=== PATIENT | male | born 1970 ===

== ENCOUNTER 2020-07-19 14:19 | Outpatient (REF) | payer OTHER, SELFPAY | END 2020-07-19 14:20 | disposition home or self-care (01) | LOC: HO.LAB 14:19 | PROVIDERS: Visit Provider Internal Medicine | DX: Z20.828 Contact with and (suspected) exposure to other viral communicable diseases (principal) | CPT/HCPCS: 87635 ==

== ENCOUNTER 2020-10-19 09:56 | Emergency (ER) | payer OTHER, SELFPAY ==
[2020-10-19 10:49] VITALS: BP 132/80; PULSE 67; RESP 16; TEMP 36.8; O2SAT 99; BMI 25.8
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
== END 2020-10-19 11:26 | disposition home or self-care (01) ==
PROVIDERS: Emergency Provider Emergency Medicine
DX: S13.4XXA Sprain of ligaments of cervical spine, initial encounter (principal); S39.012A Strain of muscle, fascia and tendon of lower back, initial encounter; M54.2 Cervicalgia; V43.62XA Car passenger injured in collision with other type car in traffic accident, initial encounter; Y93.9 Activity, unspecified; Y92.410 Unspecified street and highway as the place of occurrence of the external cause; Y99.9 Unspecified external cause status; Z79.899 Other long term (current) drug therapy
CPT/HCPCS: 99283; 99284

== ENCOUNTER 2021-05-06 13:58 | Outpatient (REF) | payer OTHER, SELFPAY ==
--- NOTE | ~2021-05-06 | XR_ITS ---
EXAMINATION: XR CERVICAL SPINE CLINICAL INFORMATION: Cervicalgia. COMPARISON: None. TECHNIQUE: 3 views of the cervical spine were obtained. FINDINGS: Straightening of the normal cervical lordosis, which may be positional or related to muscular spasm. Minimal grade 1 retrolisthesis of C5 on C6. No loss of vertebral body height. Loss of intervertebral disc height with prominent endplate osteophytes at C5-C6. No lytic or blastic osseous lesion. Normal atlantoaxial alignment. Unremarkable prevertebral soft tissues. XR/XR cervical spine 3V IMPRESSION: 1. Moderate degenerative disc disease at C5-C6 with minimal grade 1 retrolisthesis. 2. Straightening of the normal cervical lordosis, which may be positional or related to muscular spasm.
== END 2021-05-06 13:59 | disposition home or self-care (01) ==
LOC: HO.HMGCX 13:58
PROVIDERS: Visit Provider Hospitalist
DX: M54.2 Cervicalgia (principal)
CPT/HCPCS: 72040

== ENCOUNTER 2021-09-20 10:39 | Outpatient (REF) | payer OTHER, SELFPAY ==
[2021-09-20 11:36] LABS: Binax Now Covid-19 Ag Negative (Negative)
[2021-09-20 11:37] LABS: Binax Internal Control QC Valid; Binax Lot number: 9864
== END 2021-09-20 10:40 | disposition home or self-care (01) ==
LOC: HO.LAB 10:39
PROVIDERS: Visit Provider Internal Medicine
DX: Z20.822 Contact with and (suspected) exposure to COVID-19 (principal)
CPT/HCPCS: 36415; C9803

== ENCOUNTER 2021-10-17 09:47 | Outpatient (REF) | payer OTHER, SELFPAY ==
--- NOTE | ~2021-10-17 | XR_ITS ---
EXAMINATION: CERVICAL AND THORACIC SPINE X-RAY CLINICAL INFORMATION: Radiculopathy COMPARISON: Previous cervical spine x-ray April 2021 and thoracic spine x-ray January 2017 and MRI October 2017 TECHNIQUE: 3 views of the cervical spine and 3 views of the thoracic spine including swimmer's view FINDINGS: Cervical spine: Bone alignment is normal. No fracture or dislocation is seen. There is degenerative spondylosis at C3 C4-C5 and C5-C6. There is disc space narrowing at C5-C6. Prevertebral soft tissues are normal. Thoracic spine: Bone alignment is normal. No fracture or dislocation is seen. Disc spaces are normal. There is mild degenerative spondylosis of the lower thoracic spine. Paraspinal soft tissues are unremarkable. XR/XR cervical spine 3V IMPRESSION: Cervical spine: Degenerative changes at C4-C5 and C5-C6 similar to April 2021 exam. Thoracic spine: Mild degenerative spondylosis of the lower thoracic spine.
--- NOTE | ~2021-10-17 | XR_ITS ---
EXAMINATION: CERVICAL AND THORACIC SPINE X-RAY CLINICAL INFORMATION: Radiculopathy COMPARISON: Previous cervical spine x-ray April 2021 and thoracic spine x-ray January 2017 and MRI October 2017 TECHNIQUE: 3 views of the cervical spine and 3 views of the thoracic spine including swimmer's view FINDINGS: Cervical spine: Bone alignment is normal. No fracture or dislocation is seen. There is degenerative spondylosis at C3 C4-C5 and C5-C6. There is disc space narrowing at C5-C6. Prevertebral soft tissues are normal. Thoracic spine: Bone alignment is normal. No fracture or dislocation is seen. Disc spaces are normal. There is mild degenerative spondylosis of the lower thoracic spine. Paraspinal soft tissues are unremarkable. XR/XR thoracic spine 3V IMPRESSION: Cervical spine: Degenerative changes at C4-C5 and C5-C6 similar to April 2021 exam. Thoracic spine: Mild degenerative spondylosis of the lower thoracic spine.
== END 2021-10-17 09:48 | disposition home or self-care (01) ==
LOC: HO.HMGCX 09:47
PROVIDERS: Visit Provider Nurse Practitioner Family
DX: M54.14 Radiculopathy, thoracic region (principal)
CPT/HCPCS: 72040; 72072

== ENCOUNTER → 2021-11-01 08:42 | Outpatient (BNVA) | payer OTHER, SELFPAY | PROVIDERS: Visit Provider Nurse Practitioner | DX: Z12.11 Encounter for screening for malignant neoplasm of colon (principal); K21.9 Gastro-esophageal reflux disease without esophagitis; K75.81 Nonalcoholic steatohepatitis (NASH) | CPT/HCPCS: 99212 ==

== ENCOUNTER 2021-11-04 08:29 | Outpatient (REF) | payer OTHER, SELFPAY ==
[2021-11-04 09:38] LABS: Alanine Aminotransferase 19 U/L (0-40); Albumin Level 4.4 g/dL (3.5-5.0); Alkaline Phosphatase 39 U/L (39-117); Anion Gap 11 (12-20); Aspartate Amino Transferase 20 U/L (5-37); Bilirubin Total 0.7 mg/dL (0.0-1.0); Blood Urea Nitrogen 14 mg/dL (9-16); Calcium 9.7 mg/dL (8.4-10.2); Carbon Dioxide 29 mmol/L (22-29); Chloride 107 mmol/L (96-108); Estimated Glomerular Filt Rate > 60; Glucose Random 103 mg/dL (60-115); Potassium 4.6 mmol/L (3.3-5.1); Sodium 142 mmol/L (135-145); Total Protein 7.2 g/dL (6.5-8.0)
[2021-11-06 12:12] LABS: Alpha Fetoprotein 2.4 ng/mL (<6.1)
== END 2021-11-04 08:30 | disposition home or self-care (01) ==
LOC: HO.LAB 08:29
PROVIDERS: Visit Provider Nurse Practitioner
DX: Z12.11 Encounter for screening for malignant neoplasm of colon (principal)
CPT/HCPCS: 36415; 80053; 82105

== ENCOUNTER → 2021-12-09 10:31 | Outpatient (BNVA) | payer OTHER, SELFPAY | PROVIDERS: Visit Provider Internal Medicine | DX: M54.51 Vertebrogenic low back pain (principal); M51.34 Other intervertebral disc degeneration, thoracic region; S16.1XXA Strain of muscle, fascia and tendon at neck level, initial encounter; X58.XXXA Exposure to other specified factors, initial encounter; Y93.9 Activity, unspecified; Y92.9 Unspecified place or not applicable; Y99.8 Other external cause status; Z79.899 Other long term (current) drug therapy | CPT/HCPCS: 99202 ==

== ENCOUNTER 2021-12-16 08:48 | Outpatient (REF) | payer OTHER, SELFPAY ==
[2021-12-16 11:38] LABS: Appearance Urine CLEAR; Color Urine YELLOW; Glucose Urine UA NEG (NEG); Leukocyte Esterase Urine NEG (NEG); Nitrite Urine NEG (NEG); PH 5.5 (5.0-8.0); Specific Gravity - Urine >= 1.030 (1.005-1.025); Urine Blood NEG (NEG); Urine Ketones NEG (NEG); Urine Protein NEG (NEG-TRACE)
[2021-12-16 11:58] LABS: Alanine Aminotransferase 28 U/L (0-40); Albumin Level 4.3 g/dL (3.5-5.0); Alkaline Phosphatase 39 U/L (39-117); Anion Gap 11 (12-20); Aspartate Amino Transferase 20 U/L (5-37); Bilirubin Total 0.6 mg/dL (0.0-1.0); Blood Urea Nitrogen 14 mg/dL (9-16); Calcium 9.1 mg/dL (8.4-10.2); Carbon Dioxide 26 mmol/L (22-29); Chloride 108 mmol/L (96-108); Cholesterol 161 mg/dL; Estimated Glomerular Filt Rate > 60; Glucose Fasting 102 mg/dL (60-99); HDL Cholesterol 32 mg/dL; LDL Cholesterol Calculated 105 mg/dl; Potassium 4.4 mmol/L (3.3-5.1); Sodium 141 mmol/L (135-145); Total Protein 7.1 g/dL (6.5-8.0); Triglycerides 124 mg/dL
[2021-12-16 12:18] LABS: Prostate Specific Antigen Scr 0.45 ng/mL (<0.05-4.0); TSH reflex Free T4 1.69 uIU/mL (0.32-4.0)
== END 2021-12-16 08:49 | disposition home or self-care (01) ==
LOC: HO.HMGCLDS 08:48
PROVIDERS: Visit Provider Nurse Practitioner Family
DX: Z00.00 Encounter for general adult medical examination without abnormal findings (principal); Z12.5 Encounter for screening for malignant neoplasm of prostate
CPT/HCPCS: 36415; 80053; 80061; 81003; 84153; 84443

== ENCOUNTER 2022-02-04 10:13 | Outpatient (REF) | payer OTHER, SELFPAY ==
--- NOTE | ~2022-02-04 | US_ITS ---
EXAMINATION: US ABDOMEN LIMITED CLINICAL INFORMATION: Right upper quadrant abdominal pain. COMPARISON: Ultrasound abdomen complete 09/13/2019 and 12/27/2018. X-ray abdomen 10/27/2018. CT abdomen and pelvis without contrast 02/24/2017. TECHNIQUE: Real-time imaging of the right upper quadrant abdominal viscera. FINDINGS: PANCREAS: Normal. LIVER: The liver is normal in size. The liver contour is normal. There is mildly increased echogenicity diffusely consistent with some degree of fatty infiltration. No focal hepatic lesion. There is no intrahepatic biliary duct dilatation seen. GALLBLADDER: Normal. The gallbladder is physiologically distended without evidence of stones, sludge, polyps, wall thickening or pericholecystic fluid. COMMON BILE DUCT: Normal in caliber measuring 0.3 cm in diameter. RIGHT KIDNEY: Normal. No hydronephrosis. No renal calculi or focal parenchymal lesions. The kidney measures 9.9 cm in maximum dimension. FREE FLUID: None. US/US abdomen limited IMPRESSION: Mildly homogeneous increased echogenicity of the liver consistent with mild fatty infiltration. This is similar to prior studies. No evidence of acute cholecystitis or pancreatitis.
== END 2022-02-04 10:14 | disposition home or self-care (01) ==
LOC: HO.HMGCX 10:13
PROVIDERS: Visit Provider Nurse Practitioner
DX: R10.11 Right upper quadrant pain (principal)
CPT/HCPCS: 76705

== ENCOUNTER → 2022-02-13 09:12 | Outpatient (BNVA) | payer OTHER, SELFPAY | PROVIDERS: PCP Nurse Practitioner Family; Referring Provider Nurse Practitioner Family; Visit Provider Nurse Practitioner | DX: K75.81 Nonalcoholic steatohepatitis (NASH) (principal); K21.9 Gastro-esophageal reflux disease without esophagitis | CPT/HCPCS: 99212 ==

== ENCOUNTER 2022-06-23 07:49 | Day surgery (SDC) | payer OTHER, SELFPAY ==
--- NOTE | 2022-06-20 12:39 | HO.ANESPROP2 ---
Documented by User: Ariane Pascal NP 06/20/22 12:40 HPI - Anesthesia Eval Consult details Narrative: 51yo M for Colonoscopy PMFSH Active Problems Active Problems: All Active Problems (Updated 01/28/22 @ 13:09 by Ariane Pascal NP) Chronic idiopathic constipation (Acute) VANN (nonalcoholic steatohepatitis) (Acute) GERD (gastroesophageal reflux disease) (Acute) Screening PSA (prostate specific antigen) (Acute) Physical exam (Acute) Vertebrogenic low back pain (Acute) Colon cancer screening (Acute) Thoracic radiculopathy (Acute) Strain of cervical portion of trapezius muscle (Acute) Neck pain (Acute) Abdominal pain, right upper quadrant (Acute) Abdominal bloating (Acute) Past Medical History Medical History (Updated 06/23/22 @ 07:57 by Azalea Ruffin RN) Chronic idiopathic constipation GERD (gastroesophageal reflux disease) Heart murmur VANN (nonalcoholic steatohepatitis) Thoracic degenerative disc disease Vertebrogenic low back pain Family History Family History (Updated 12/11/21 @ 12:03 by Jennifer Wray CMA) Father No problems noted. Mother History of cancer of bone Hx of diabetes insipidus Surgical History Surgical History Hx of endoscopy Social History Social History Housing: House Alcohol intake: never Patient Tobacco Use Status: Never used Tobacco e-Cigarette/Vaping Use: Never Used Second Hand Smoke Exposure: No Use of substances other than those prescribed or required for medical reasons: No Are you DNR?: No Advance Directives: No Advance Directives Information Provided: Yes service: No Current occupational status: unemployed Meds Allergies Allergy/AdvReac Type Severity Reaction Status Date / Time No Known Allergies Allergy Verified 06/23/22 07:58 Home Medications Medication Instructions Recorded Confirmed Last Taken Type acetaminophen 500 mg tablet 1,000 mg PO Q6H PRN Pain 06/23/22 06/23/22 Unknown History Exam Exam Date and Time: June 20, 2022 1239 Assessment and Plan Assessment Anesthesia Assessment: Chart Reviewed Documented by User: Angelia Huntley MD 06/23/22 08:21 [facility] Past Medical History Medical History (Updated 06/23/22 @ 07:57 by Azalea Ruffin, RN) Chronic idiopathic constipation GERD (gastroesophageal reflux disease) Heart murmur VANN (nonalcoholic steatohepatitis) Thoracic degenerative disc disease Vertebrogenic low back pain Family History Family History (Updated 12/11/21 @ 12:03 by Jennifer Wray CMA) Father No problems noted. Mother History of cancer of bone Hx of diabetes insipidus Family history of problems with anesthesia: No Surgical History Surgical History Hx of endoscopy History of Problems with Anesthesia: No Social History Social History Housing: House Alcohol intake: never Patient Tobacco Use Status: Never used Tobacco e-Cigarette/Vaping Use: Never Used Second Hand Smoke Exposure: No Use of substances other than those prescribed or required for medical reasons: No Are you DNR?: No Advance Directives: No Advance Directives Information Provided: Yes service: No Current occupational status: unemployed Meds Allergies Allergy/AdvReac Type Severity Reaction Status Date / Time No Known Allergies Allergy Verified 06/23/22 07:58 Home Medications Medication Instructions Recorded Confirmed Last Taken Type acetaminophen 500 mg tablet 1,000 mg PO Q6H PRN Pain 06/23/22 06/23/22 Unknown History Exam Airway Mallampati Class: II (Cavity filled tooth) TM Dist: >3cm Neck ROM: Full Heart: rrr Lungs: cta Assessment and Plan Assessment Anesthesia Assessment: Anesthesia Plan Discussed Final Anesthetic Review Family History of Problems with Anesthesia: No History of Problems with Anesthesia: No NPO: Yes ASA Class: II Final Preanesthetic Review: No Changes in Pt Med Stat, Meds/Allgs Chart Reviewed and Consent Obtained/Reviewed Patient Risk: Intermediate Procedure Risk: Intermediate Anesthetic Plan Anesthetic Plan: MAC: Disposition: Standard PACU
[2022-06-23 07:54] VITALS: BMI 27.3
--- NOTE | 2022-06-23 07:59 | MHC.SHP ---
Pre-Procedural Eval Section A Date of Service: 06/23/22 The patient is an INPATIENT: No The History & Physical has been completed within 30 days and I have reviewed it.: No Section B Chief Complaint: screening Details of Present Illness: Colon cancer screening Relevant Family History (Specify if Yes): No Relevant Social History: None Present Medications: see Short Stay Collaborative assessment Medical History: Significant History (Chronic idiopathic constipation GERD (gastroesophageal reflux disease) VANN (nonalcoholic steatohepatitis) Thoracic degenerative disc disease Vertebrogenic low back pain) History of Previous Operations: Relevant previous surgery/procedure and date(s) (History of EGD) Allergies: Allergies Allergy/AdvReac Type Severity Reaction Status Date / Time No Known Allergies Allergy Verified 06/23/22 07:58 Review of Systems Sugical H&P ROS: Negative: Constitution, Cardiovascular, Respiratory and Gastrointestinal Exam Surgical H&P Exam: Normal: Heart, Normal: Lungs, Normal: Extremities and Normal: Abdomen Plan Diagnosis/Plan: Unchanged I have reviewed the history and physical and performed a pertinent physical examination on my patient. No changes have occurred unless specified.
[2022-06-23 08:05] VITALS: BP 135/95; PULSE 74; RESP 15; TEMP 36.8; O2SAT 98
--- NOTE | 2022-06-23 08:34 | PM.OP ---
Brief Operative Note Date of Service: 06/23/22 Pre-op diagnosis: Colon cancer screening Post-op diagnosis: other (Diverticulosis, hemorrhoids) Procedure: COLONOSCOPY TILL CECUM Consent: Indications for the procedure and potential complications of bleeding, perforation, reaction to medications and missed diagnosis were discussed with the patient and informed consent was obtained. Instrument: Olympus PCF H 190 L variable stiffness pediatric colonoscope Monitoring: Vital signs and clinical assessment, intermittent blood pressure monitoring, continuous EKG monitoring, Pulse oximetry and Carbon Dioxide monitoring were done throughout the procedure. Colon withdrawl time was 9 minutes. Procedure: The patient was placed in the left lateral decubitis position and pre-procedure medications were administered. After a digital rectal examination of the ano-rectum, the video colonoscope was inserted into the rectum and advanced through the colon to the cecum. The colonoscope was slowly withdrawn in a retrograde panoramic fashion and the colon mucosa was carefully examined including a retroflexed view of the rectum. Findings and interventions are described below. Procedure Difficulty: Without difficulty Findings: Terminal Ileum: Not evaluated Cecum: Normal Ascending Colon: Normal Transverse Colon: Normal Descending Colon: Moderate diverticulosis Sigmoid Colon: Moderate diverticulosis Rectum: Normal Ano-rectum: Moderate internal hemorrhoids Colon preparation: Excellent Impression and Post Procedure Diagnosis: Colonoscopy Findings: No polyps were detected. Moderate diverticulosis seen in the left colon Moderate hemorrhoids on retroflexed exam. Plan: Patient has an appointment on 07/07/22 in the GI Clinic with Elida Choudhary NP. Repeat Colonoscopy in 9 to 10 years (earlier if pt has new GI symptoms or family hx). Above findings were reviewed with the patient and diverticulosis handout was given in the discharge area Surgeon: Talia Anaya MD Anesthesia: MAC (Dr Saxena) Was an Workforce Planning Analyst used for this Procedure?: Yes Workforce Planning Analyst: Prasanna Mark Estimated blood loss (mL): 0 Pathology: none sent Condition: stable Disposition: PACU
[2022-06-23 08:58] VITALS: BP 87/52; PULSE 81; RESP 16; TEMP 36.4; O2SAT 95
--- NOTE | 2022-06-23 09:03 | W.PM.OPN ---
Operative Note Operative Note Date of Service: 06/23/22 Narrative: Pre-op diagnosis: Colon cancer screening Post-op diagnosis:?other (Diverticulosis, hemorrhoids) Procedure: COLONOSCOPY TILL CECUM Consent: Indications for the procedure and potential complications of bleeding, perforation, reaction to medications and missed diagnosis were discussed with the patient and informed consent was obtained. Instrument: Olympus PCF H 190 L variable stiffness pediatric colonoscope Monitoring: Vital signs and clinical assessment, intermittent blood pressure monitoring, continuous EKG monitoring, Pulse oximetry and Carbon Dioxide monitoring were done throughout the procedure. Colon withdrawl time was 9 minutes. Procedure: The patient was placed in the left lateral decubitis position and pre-procedure medications were administered. After a digital rectal examination of the ano-rectum, the video colonoscope was inserted into the rectum and advanced through the colon to the cecum. The colonoscope was slowly withdrawn in a retrograde panoramic fashion and the colon mucosa was carefully examined including a retroflexed view of the rectum. Findings and interventions are described below. Procedure Difficulty: Without difficulty Findings: Terminal Ileum: Not evaluated Cecum:? Normal Ascending Colon:? Normal Transverse Colon:? Normal Descending Colon:? Moderate diverticulosis Sigmoid Colon:? Moderate diverticulosis Rectum:? Normal Ano-rectum:? Moderate internal hemorrhoids Colon preparation: Excellent ? Impression and Post Procedure Diagnosis: Colonoscopy Findings: No polyps were detected. Moderate diverticulosis seen in the left colon Moderate hemorrhoids on retroflexed exam. Plan: Patient has an appointment on 07/07/22 in the GI Clinic with? Elida Choudhary NP. Repeat Colonoscopy in 9 to 10 years (earlier if pt has new GI symptoms or family hx). Above findings were reviewed with the patient and diverticulosis handout was given in the discharge area Surgeon: Talia Anaya MD Anesthesia:?MAC (Dr Saxena) Was an Transportation Inspector used for this Procedure?:?Yes Transportation Inspector:?Prasanna Mark Estimated blood loss (mL):?0 Pathology:?none sent Condition:?stable Disposition:?PACU
[2022-06-23 09:13] VITALS: BP 108/69; PULSE 79; RESP 16; TEMP 36.4; O2SAT 96
== END 2022-06-23 09:58 | disposition home or self-care (01) ==
PROVIDERS: PCP Nurse Practitioner Family; Visit Provider Internal Medicine Gastroenterology
PROC: 0DJD8ZZ Inspection of Lower Intestinal Tract, Via Natural or Artificial Opening Endoscopic (ICD-10-PCS; CPT 45378; principal; 2022-06-23 09:20)
DX: Z12.11 Encounter for screening for malignant neoplasm of colon (principal); K57.30 Diverticulosis of large intestine without perforation or abscess without bleeding; K64.8 Other hemorrhoids; K21.9 Gastro-esophageal reflux disease without esophagitis; K59.04 Chronic idiopathic constipation; K75.81 Nonalcoholic steatohepatitis (NASH); Z79.899 Other long term (current) drug therapy
CPT/HCPCS: 45378

== ENCOUNTER 2022-07-02 12:21 | Outpatient (REF) | payer OTHER, SELFPAY ==
--- NOTE | ~2022-07-02 | XR_ITS ---
EXAMINATION: XR LUMBOSACRAL SPINE CLINICAL INFORMATION: M54.50 - Low back pain, unspecified COMPARISON: CT abdomen and pelvis 02/24/2017 TECHNIQUE: Three views of the lumbosacral spine. FINDINGS: There is a transitional vertebrae at L5 with partial left hemisacralization. Vertebral bodies are normal in height and there is no lumbar vertebral compression or destructive process. Incidental Schmorl's node is again noted inferior endplate L2. There is anterior vertebral spurring lower thoracic spine with degenerative disc changes T11-T12 and T12-L1. There are is mild disc narrowing at L4-L5 with borderline grade 0-1 spondylolisthesis. The SI joints and visualized sacrum are unremarkable. XR/XR lumbar spine 2-3V IMPRESSION: 1. 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 2. Mild disc narrowing L4-L5 with borderline grade 0-1 spondylolisthesis. 3. No vertebral compression or destructive process.
== END 2022-07-02 12:22 | disposition home or self-care (01) ==
LOC: HO.HMGCX 12:21
PROVIDERS: PCP Nurse Practitioner Family; Visit Provider Nurse Practitioner Family
DX: M54.50 Low back pain, unspecified (principal); G89.29 Other chronic pain
CPT/HCPCS: 72100

== ENCOUNTER 2022-10-28 12:00 | Outpatient (RCR) | payer OTHER, SELFPAY ==
--- NOTE | 2022-09-08 13:57 | MHC.PT.EP ---
[facility] [place] Office [place] Office [place] Office [address] Nicolás Lanier [address] [phone] F: [phone] F: [phone] F: [phone] F: [phone] Physical Therapy Plan of Care Date of Evaluation: Date of Surgery: N/A Diagnosis: low back pain (RC) Assessment: pt is a 51 y/o male presenting to physical therapy w/ referring diagnosis of low back pain. pt's signs and symptoms consistent w/ SI dysfunction. Impairments include pain, decreased range of motion, decreased strength, impaired functional mobility, impaired postural awareness, and altered ambulation mechanics. pt is a good candidate for skilled PT due to age, potential remediation of impairments, typyical disease/condition progression and prognosis, comorbidities, and motivation. pt would benefit from skilled PT intervention to provide a tailored strengthening and stretching exercise program, functional training, gait training, postural re-training, neuromuscular re-education, modalities as needed for pain, equipment safety demonstration. Frequency and Duration: The patient will be seen 2x/wk for 4 wks Short Term Goals: pt will be I w/ HEP to promote self-management of symptoms. pt will demo proper sitting posture w/ lumbar roll to promote neutral spine w/ seated ADLs. Graduate Research Assistant Goals: pt will improve R hip abduction strength by 1 MMT grade to promote neutral spine w/ ambulation. pt will report a statistically significant improvement in self-reported outcome measure, Alexandr, to promote return to PLOF. Treatment Plan: Modalities to reduce pain, spasms and effusion. Manual therapy to restore motion and function. Therapeutic exercise to improve strength and flexibility. Neuromuscular re-education for posture and balance. Therapeutic activities to return to functional activities of daily living. Electronically signed by: Angelia Crockett PT, DPT Please sign and return to therapist. Thank you for your referral.
--- NOTE | 2022-11-05 11:02 | MHC.PT.DC ---
[facility] [place] Office [place] Office [place] [facility] [address] Nicolás Lanier [address] [phone] F: [phone] F: [phone] F: [phone] F: [phone] Physical Therapy Discharge Report Diagnosis: low back pain (RC) Date of Surgery: N/A Date of Evaluation: 09/08/22 Date of Discharge: 11/05/22 Treatments to Date: 8 Cancellations to Date: 2 No Shows to Date: 0 Discharge Status: Independent with HEP Recommend MD Follow-up Discharge Summary: The patient overall was reporting little to no change in his back pain symptoms. He localized the pain to the thoracolumbar junction. He has trialed a stretching program, strengthening program, postural education, lifting mechanics training, soft tissue manipulation including massage and instrument assisted massage. He is discharged from this physical therapy plan of care with the recommendation for follow-up to determine alternative pain management techniques. Electronically signed by: Angelia Crockett PT, DPT Please sign and return to therapist. Thank you for your referral.
== END 2022-11-05 11:02 | disposition home or self-care (01) ==
LOC: HO.PT 12:00
PROVIDERS: PCP Nurse Practitioner Family; Visit Provider Nurse Practitioner Family
DX: M54.50 Low back pain, unspecified (principal)
CPT/HCPCS: 97110; 97140; 97162; 97530

== ENCOUNTER 2023-01-14 11:21 | Outpatient (REF) | payer OTHER, SELFPAY ==
--- NOTE | ~2023-01-14 | MR_ITS ---
EXAMINATION: MR LUMBAR SPINE WITHOUT CONTRAST CLINICAL INFORMATION: Lower back pain COMPARISON: None TECHNIQUE: MRI of the lumbar spine was obtained using routine sequences without contrast. FINDINGS: Grade 1 anterolisthesis of L4 on L5. No suspicious marrow signal or focal osseous lesion. Endplate Schmorl's nodes at T11-T12 and involving the L2 and L3 inferior endplates. The vertebral body heights are maintained. Multilevel disc desiccation and height loss, sparing L1-L2 and L2-L3. The conus medullaris terminates at the level of L1. The distal spinal cord is normal in appearance. The cauda equina nerve roots appear normal. No significant abnormalities of the paraspinal musculature. Limited evaluation of the intra-abdominal structures without significant abnormalities. The abdominal aorta is of normal contour and caliber. SPINAL LEVELS: T12-L1: Shallow disc bulge and mild facet arthropathy. No significant spinal canal or neural foraminal narrowing L1-L2: No significant spinal canal or neuroforaminal narrowing. L2-L3: No significant spinal canal or neuroforaminal narrowing. L3-L4: Shallow disc bulge and mild facet arthropathy with small left greater than right facet joint effusions. No significant central spinal canal stenosis. Mild bilateral neural foraminal narrowing L4-L5: Anterolisthesis with posterior disc uncovering. Severe facet arthropathy with small bilateral joint effusions and periarticular marrow edema. Ligamentum flavum thickening. Mild central spinal canal stenosis and bilateral subarticular zone narrowing, left greater than right, with likely mass effect on the traversing L5 nerve roots. Moderate bilateral neural foraminal narrowing L5-S1: Shallow left foraminal disc protrusion. Facet arthropathy. No significant central spinal canal stenosis. Mild left neural foraminal narrowing. MR/MR lumbar spine wo con IMPRESSION: 1. At L4-L5, there is grade 1 anterolisthesis on the basis of advanced facet arthropathy with periarticular marrow edema, likely reflecting degenerative arthritis. There is mild spinal canal stenosis and bilateral subarticular zone narrowing, left greater than right, with likely mass effect on the traversing L5 nerve roots. There is also moderate bilateral neural foraminal narrowing at this level. 2. Additional multilevel degenerative changes as described above without significant central spinal canal narrowing or high-grade neural foraminal stenosis.
--- NOTE | ~2023-01-14 | XR_ITS ---
EXAMINATION: XR ORBITS, PRE-MRI SCREENING CLINICAL INFORMATION: Assess for metallic orbital foreign body pre-MRI. COMPARISON: CT had noncontrast 09/01/2019 TECHNIQUE: The orbits are imaged in 3 views. FINDINGS: There is no metallic orbital foreign body. No bony destructive process. No air-fluid levels sinuses. XR/XR pre mri screening IMPRESSION: No metallic orbital foreign body.
== END 2023-01-14 11:22 | disposition home or self-care (01) ==
LOC: HO.MRI 11:21
PROVIDERS: PCP Nurse Practitioner Family; Visit Provider Nurse Practitioner Family
DX: G89.29 Other chronic pain (principal); M54.50 Low back pain, unspecified; R93.7 Abnormal findings on diagnostic imaging of other parts of musculoskeletal system
CPT/HCPCS: 72148

== ENCOUNTER 2023-12-22 13:27 | Outpatient (AMB) | payer OTHER, SELFPAY ==
--- NOTE | 2023-12-22 13:28 | A.OFFPC_ITS ---
Vital Signs 12/22/23 13:31 12/22/23 14:29 Height 5 ft 7 in Weight 190 lb BMI 29.8 BP 130/100 H 126/80 Blood Pressure Location Rt brachial Rt brachial Position Sitting Sitting Pulse 64 Pulse Source Pulse Oximeter Pulse Oximetry (%) 98 Oxygen Delivery Method Room Air Intake Visit Reasons: PE/OK Per AG Intake Note: Patient here for physical exam. would like to talk about stomach issues. [place] [facility] [place] 10 [place]. Allergies No Known Allergies Allergy (Verified 12/22/23 17:23) Medication List - Last Reconciled 12/22/23 by LATOYA Wallace acetaminophen 1,000 mg PO Q6H PRN gabapentin 300 mg PO DAILY PRN meloxicam 15 mg PO DAILY PRN 30 days Tobacco use date assessed: 12/22/23 Dental Screening Dental Screen Date: 12/22/23 Did you have a dental visit in the last 12 months?: Yes Did you have a dental problem in the last 6 months where you did not have access to dental care?: No Was dental information given to patient?: Patient has dentist HPI PE/OK Per AG HPI Details Pt is here for a PE. Will order labs. Colon screen is up to date. Due for PSA, will order. Denies dribbling with urination, weak stream, and frequent nocturia. 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 Mother History of cancer of bone Hx of diabetes insipidus Social History Housing: House Alcohol intake: never Patient Tobacco Use Status: Never used Tobacco e-Cigarette/Vaping Use: Never Used Second Hand Smoke Exposure: No service: No Current occupational status: unemployed Cognitive needs: No Hearing needs: No Vision needs: Yes (glasses) Questionnaire PHQ-9 Over the last 2 weeks, how often have you been bothered by any of the following problems? 1. Little interest or pleasure in doing things: more than half the days 2. Feeling down, depressed, or hopeless: more than half the days 3. Trouble falling or staying asleep, or sleeping too much: nearly every day 4. Feeling tired or having little energy: more than half the days 5. Poor appetite or overeating: several days 6. Feeling bad about yourself - or that you are a failure or have let yourself or your family down: more than half the days 7. Trouble concentrating on things, such as reading the newspaper or watching television: several days 8. Moving or speaking so slowly that other people could have noticed. Or the opposite - being so fidgety or restless that you have been moving around a lot more than usual: several days 9. Thoughts that you would be better off or of hurting yourself in some way: not at all Total score: 14 Depression Screening Interpretation: Positive (will have ana () call pt) Depression Screening Follow-up: Existing condition and Community Mental Health Worker F/U Depression Screening Done: Yes 17747 - PHQ-9 Billing: Yes Source: Developed by Drs. Harley Vazquez, Jeanna Kenyon, Jourdan Greer and colleagues, with an educational tracey from [employer]. Thrive Questionnaire Date Thrive assessed: 12/15/22 I am a: Patient What is your living situation today?: I have a place to live, but I am worried about losing it in the future Within the past 12 months, did the food you bought not last and you didn't have the money to get more?: Sometimes True Within the past 12 months, did you worry whether your food would run out before you got money to buy more?: Sometimes True Do you have trouble paying for medicines?: No Do you have trouble getting transportation to medical appointments?: No Do you have trouble paying your heating and electricity bill?: Yes Do you have trouble taking care of your child, family member or friend?: No Do you have trouble with day-to-day activities such as bathing, preparing meals, shopping, managing finances, etc.?: Yes Are you currently unemployed and looking for a job?: No Are you interested in more education?: No Currently or been in a relationship where the following occur: I choose not to answer this question THRIVE Score: 4 AUDIT C Alcohol Use Questionnaire (AUDIT-C) 1. How often do you have a drink containing alcohol?: Never 2. How many drinks containing alcohol do you have on a typical day when you are drinking?: 3 or 4 3. How often do you have six or more drinks on one occasion?: Never Total Score: 1 Score Reviewed/Action Taken: No ISAÍAS-7 AMB Questionnaire ISAÍAS-7 Date ISAÍAS - 7 assessed: 12/22/23 Feeling nervous, anxious, or on edge: 3 = Nearly every day Not being able to stop or control worryin = More than half the days Worrying too much about different things: 3 = Nearly every day Trouble relaxin = More than half the days Being so restless that it is hard to sit still: 3 = Nearly every day Becoming easily annoyed or irritable: 2 = More than half the days Feeling afraid as if something awful might happen: 2 = More than half the days Total ISAÍAS-7 score (0-4 normal; 5-9 mild; 10-14 moderate; 15-21 severe): 17 Source: Developed by Drs. Harley Vazquez, Jeanna Kenyon, Jourdan Greer and colleagues, with an educational tracey from [employer]. ISAÍAS-7 Assessment Billing ISAÍAS-7 Assessment Tool: ISAÍAS-7 Assessment 33292 Review of Systems Const Denies chills and Denies fever(s) Eyes Denies blurry vision ENT Denies vertigo, Denies dizziness and Denies sore throat Card Denies chest pain at rest, Denies chest pain with activity, Denies diaphoresis, Denies dyspnea and Denies dyspnea on exertion Resp Denies cough, Denies dyspnea, Denies dyspnea on exertion and Denies wheezing GI Denies abdominal pain, Denies melena, Denies hematochezia, Denies constipation, Denies diarrhea and Denies loose stools Denies hematuria Musc Denies numbness and Denies tingling Skin/Breast Denies lesions Neuro Denies vertigo, Denies dizziness, Denies numbness and Denies tingling Psych Denies anxiety, Denies depression, Denies homicidal ideation, Denies suicidal ideation and Denies other (substance abuse) Aller/Immun Denies wheezing Physical exam (Primary Care) Vital Signs: Last Vital Signs Pulse 64 12/22/23 13:31 BP 126/80 12/22/23 14:29 Pulse Ox 98 12/22/23 13:31 Oxygen Delivery Method Room Air 12/22/23 13:31 BMI result Body Mass Index 29.8 Tobacco/Smoking Status: Tobacco use Status Tobacco use date assessed 12/22/23 12/22/23 13:39 Patient Tobacco Use Status Never used Tobacco 12/22/23 13:29 e-Cigarette/Vaping Use Never Used 12/22/23 13:29 PHQ-9: PHQ-9 Score PHQ-9: Total score 14 12/22/23 14:29 Depression Screening Interpretation: Positive (will have ana () call pt) Depression Screening Follow-up: Existing condition and Community Mental Health Worker F/U Thrive Assessment: Date of Thrive Assessment Date Thrive assessed 12/15/22 12/22/23 13:29 Currently or been in a relationship where the following occur: I choose not to answer this question Const General: cooperative Nutritional Appearance: well nourished Orientation/consciousness: patient oriented x3 HENMT Other: cerumen noted to right ear, after ear lavage TM easily seen Head: Yes normal to inspection, Yes normocephalic and Yes atraumatic Ears: TM normal on the left Eyes General: appearance normal, both eyes and all related structures Alignment and Position: alignment normal and position normal Neck Neck: Yes normal visual inspection and Yes no lymphadenopathy Thyroid: Thyroid normal Resp Effort & Inspection: normal respiratory effort Auscultation: clear to auscultation bilaterally Cardio Rate: regular rate Rhythm: regular rhythm Heart sounds: S1 normal heart sound present, S2 normal heart sound present and no murmurs GI Palpation (GI): Soft to palpation and nontender Auscultation: normal bowel sounds Male General Exam: Yes normal external exam Penis: normal penis Scrotum: scrotum normal, testes descended bilaterally and no inguinal hernias Testes: no testicular mass Skin Rashes: no rashes Neuro General: patient oriented x3, moves all extremities, no focal motor deficits and deep tendon reflexes 2+ bilaterally Romberg Test: Negative Psych Appearance: grossly normal Mental Status: mental status grossly normal Speech and movement: Normal speech and movement present Affect: normal affect Attitude: cooperative Thought process: Normal thought process present Thought content: Normal thought content present Insight: Good insight present (Psych) Judgement: Good judgement present (Psych) Office Procedures Cerumen Removal From which ear canal was the cerumen removed: right Removal: irrigation Notes: patient tolerated procedure well, no complications and ear canal clear [id number] Irrigation/Lavage Assessment and Plan Assessment & Plan (1) Physical exam: Code(s): Z00.00 - Encounter for general adult medical examination without abnormal findings Plan: Labs ordered (2) Screening PSA (prostate specific antigen): Code(s): Z12.5 - Encounter for screening for malignant neoplasm of prostate Plan: PSA ordered (3) Cerumen impaction: Code(s): H61.20 - Impacted cerumen, unspecified ear Plan The patient agreed to the use of a rn medical inpatient services for this encounter. Scribed for LATOYA Meade by Nilda Alejandre rn medical inpatient services, on 12/22/2023 at 13:55 EST. Orders: Orders Comprehensive Rena Lara. Panel Fast Today Z00.00 - Encounter for general adult medical examination without abnormal findings UA CC w/rflx Micro + Cult Today Z00.00 - Encounter for general adult medical examination without abnormal findings Lipid Panel Today Z00.00 - Encounter for general adult medical examination without abnormal findings Prostate Specific Antigen Scr Today Z12.5 - Encounter for screening for malignant neoplasm of prostate Complete Blood Count Auto Diff Today Z00.00 - Encounter for general adult medical examination without abnormal findings TSH reflex Free T4 Today Z00.00 - Encounter for general adult medical examination without abnormal findings Coding Level of Care Code Est Pt Prev Care 40-64y(48761) Diagnoses Physical exam Z00.00 Screening PSA (prostate specific antigen) Z12.5 Cerumen impaction H61.20 CPT Codes Office Procedure - CPT: 80733-Mdm Irrigation/Lavage ([id number]) Additional Codes ISAÍAS-7 Assessment Billing - ISAÍAS-7 Assessment Tool: ISAÍAS-7 Assessment 77377 ([id number])
[2023-12-22 13:31] VITALS: BP 130/100; PULSE 64; O2SAT 98; BMI 29.8
[2023-12-22 14:29] VITALS: BP 126/80
== END 2023-12-22 14:37 | disposition home or self-care (01) ==
PROVIDERS: Visit Provider Nurse Practitioner Family
DX: Z00.00 Encounter for general adult medical examination without abnormal findings (principal); Z12.5 Encounter for screening for malignant neoplasm of prostate; H61.21 Impacted cerumen, right ear
CPT/HCPCS: 69209; 99396

== ENCOUNTER 2024-05-21 21:52 | Emergency (ER) | payer OTHER, SELFPAY ==
[2024-05-21 21:57] VITALS: BP 141/86; PULSE 68; RESP 16; TEMP 36.6; O2SAT 98; BMI 28.2
--- NOTE | 2024-05-21 22:05 | ECG_ITS ---
Test Reason : ABD PAIN Blood Pressure : / mmHG Vent. Rate : 065 BPM Atrial Rate : 065 BPM P-R Int : 138 ms QRS Dur : 078 ms QT Int : 372 ms P-R-T Axes : 026 050 018 degrees QTc Int : 386 ms Normal sinus rhythm Minimal voltage criteria for LVH, may be normal variant ( Sokolow-Good ) Borderline ECG When compared with ECG of 01-SEP-2019 15:27, No significant change was found Referred By: Generic ED Physician Electronically Signed By:SERGEY FARLEY
[2024-05-21 22:23] LABS: MANUAL DIFF FLAG NO
[2024-05-21 22:27] LABS: Basophils Absolute Auto 0.1 X10*3/uL (0.0-0.2); Basophils Percent Auto 1.1 % (0-2); Eosinophils Absolute Auto 0.1 X10*3/uL (0.0-0.4); Eosinophils Percent Auto 2.8 % (0-4); Hematocrit 41.7 % (42.0-52.0); Hemoglobin 14.4 g/dl (14.0-18.0); Imm Gran Abs Auto 0.01 X10*3/uL (0.00-0.03); Imm Gran Pct Auto 0.2 % (0.0-0.4); Lymphocytes Absolute Auto 1.4 X10*3/uL (1.2-4.9); Lymphocytes Percent Auto 29.4 % (20-40); Mean Corpuscular HGB Conc 34.5 g/dl (31.0-36.0); Mean Corpuscular Hemoglobin 29.7 pg (27.0-33.0); Mean Platelet Volume 10.3 fL (9.4-12.4); Monocytes Absolute Auto 0.7 X10*3/uL (0.1-1.2); Monocytes Percent Auto 14.7 % (2-11); Neutrophils Absolute Auto 2.4 x10*3/uL (2.0-8.3); Neutrophils Percent Auto 51.8 % (45-73); Platelet Count 293 X10*3/uL (160-400); Red Blood Count 4.85 X10*6/uL (4.60-5.80); Red Cell Distribution Width 12.4 % (11.0-16.0); White Blood Count 4.7 X10*3/uL (4.8-10.8)
--- NOTE | 2024-05-21 22:34 | ED.ABDPAIN ---
HPI - Abdominal Pain General Chief Complaint: Abdominal Pain Stated Complaint: abd pain Time Seen by Provider: 05/21/24 22:34 Source: patient Mode of arrival: ambulatory Limitations: no limitations History of Present Illness ED Provider: sonny NESS narrative: Patient's history of GERD and H pylori , not taking any medication been having more symptoms for last few weeks today he had pizza and protein shake and got worse discomfort in upper abdomen also patient has suffered with constipation last bowel movement was 3 days ago Related Data Home Medications ?Medication ?Instructions ?Recorded ?Confirmed acetaminophen 500 mg tablet 1,000 mg PO Q6H PRN Pain 06/23/22 12/22/23 Previous Rx's ?Medication ?Instructions ?Recorded gabapentin 300 mg capsule 300 mg PO DAILY PRN 10/17/21 numbness/tingling #14 caps meloxicam 15 mg tablet 15 mg PO DAILY PRN pain 30 days 07/02/22 #30 tabs pantoprazole 40 mg tablet,delayed 40 mg PO DAILY #30 tabs 05/21/24 release (Protonix) polyethylene glycol 3350 17 17 g PO DAILY #510 grams 05/21/24 gram/dose oral powder (Miralax) sucralfate 1 gram tablet 1 g PO TID #90 tabs 05/21/24 Allergies Allergy/AdvReac Type Severity Reaction Status Date / Time No Known Allergies Allergy Verified 05/21/24 21:58 Review of Systems Review of Systems Yes all other systems are reviewed and are negative PMFSH Past Medical History Medical History Heart murmur 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 Mother History of cancer of bone Hx of diabetes insipidus Social History Social History Housing: House Alcohol intake: never Patient Tobacco Use Status: Never used Tobacco Smoked in Last 30 Days: No e-Cigarette/Vaping Use: Never Used Second Hand Smoke Exposure: No Use of substances other than those prescribed or required for medical reasons: No Advance Directives: No Advance Directives Information Provided: No service: No Current occupational status: unemployed Cognitive needs: No Hearing needs: No Vision needs: Yes (glasses) Physical Exam ED Vital Signs: Vital Signs - 24 hr 05/21/24 21:57 Temperature 97.8 F Pulse Rate 68 Respiratory Rate 16 Blood Pressure 141/86 H Pulse Oximetry 98 Oxygen Delivery Method Room Air BMI result Body Mass Index 28.2 Appearance: Alert. Oriented X3. No acute distress. Eyes: No pallor or icterus ENT: Pharynx normal. Oral Mucosa moist Neck: Normal inspection. Neck supple. CVS: Normal heart rate and rhythm. Pulses normal. Respiratory: No respiratory distress. Equal air entry bilateral, no wheezing/rales/rhonchi Abdomen: Soft and tender in epigastric area no rebound tenderness or guarding Bowel sounds are present, no mass palpable, no CVA tenderness Skin: Skin warm and dry. Normal skin color. Normal skin turgor. Extremities: No lower extremity edema. No calf tenderness Neuro: Oriented X 3. No motor deficit. Medical Decision Making Differential Diagnosis Differential Diagnoses: The differential diagnosis associated with the presentation includes Gastritis/pancreatitis/constipation Lab Data MDM Lab Attestation statement: I reviewed the patient's lab results. 05/21/24 22:20 05/21/24 22:20 Labs: Lab Results 05/21/24 Range/Units 22:20 WBC 4.7 L (4.8-10.8) X10*3/uL RBC 4.85 (4.60-5.80) X10*6/uL Hgb 14.4 (14.0-18.0) g/dl Hct 41.7 L (42.0-52.0) % MCV 86.0 (80.0-98.0) fL MCH 29.7 (27.0-33.0) pg MCHC 34.5 (31.0-36.0) g/dl RDW 12.4 (11.0-16.0) % Plt Count 293 (160-400) X10*3/uL MPV 10.3 (9.4-12.4) fL Immature Gran % (Auto) 0.2 (0.0-0.4) % Neut % (Auto) 51.8 (45-73) % Lymph % (Auto) 29.4 (20-40) % [place] % (Auto) 14.7 H (2-11) % Eos % (Auto) 2.8 (0-4) % Baso % (Auto) 1.1 (0-2) % Lymph # (Auto) 1.4 (1.2-4.9) X10*3/uL [place] # (Auto) 0.7 (0.1-1.2) X10*3/uL Eos # (Auto) 0.1 (0.0-0.4) X10*3/uL Baso # (Auto) 0.1 (0.0-0.2) X10*3/uL Abs Immat Gran (auto) 0.01 (0.00-0.03) X10*3/uL Absolute Neuts (auto) 2.4 (2.0-8.3) x10*3/uL Absolute Nucleated RBC 0.000 (0.0-0.012) X10*3/uL Nucleated RBC % (auto) 0.0 (0.0-0.2) /100WBC Sodium 145 (135-145) mmol/L Potassium 3.7 (3.3-5.1) mmol/L Chloride 109 H (96-108) mmol/L Carbon Dioxide 28 (22-29) mmol/L Anion Gap 12 (12-20) BUN 15 (9-16) mg/dL Creatinine 1.07 (0.5-1.4) mg/dL Estim Creat Clear Calc 81.6 Estimated GFR > 60 Random Glucose 116 H (60-115) mg/dL Calcium 9.8 D (8.4-10.2) mg/dL Total Bilirubin 0.3 (0.0-1.0) mg/dL AST 18 (5-37) U/L ALT 18 (0-40) U/L Alkaline Phosphatase 51 (39-117) U/L Troponin I High Sens < 2.7 (<3.5-35.0) ng/L Total Protein 7.3 (6.5-8.0) g/dL Albumin 4.3 (3.5-5.0) g/dL Lipase 16 (8-78) U/L Discharge Plan Discharge Clinical Impression: GERD (gastroesophageal reflux disease), Constipation Patient Disposition: Home, Self-Care Instructions: Constipation (ED), Gastroesophageal Reflux Disease (ED) Additional Instructions: Avoid fried food Take medication as prescribed Follow up with Gastroenterology Prescriptions: New pantoprazole [Protonix] 40 mg tablet,delayed release (DR/EC) 40 mg PO DAILY Qty: 30 0RF sucralfate 1 gram tablet 1 g PO TID Qty: 90 0RF polyethylene glycol 3350 [Miralax] 17 gram/dose powder 17 g PO DAILY Qty: 510 0RF No Action acetaminophen 500 mg Tablet 1,000 mg PO Q6H PRN (Reason: Pain) gabapentin 300 mg capsule 300 mg PO DAILY PRN (Reason: numbness/tingling) Qty: 14 0RF meloxicam 15 mg tablet 15 mg PO DAILY PRN (Reason: pain) 30 Days Qty: 30 2RF Referrals: Albertina Pope MD [Physician] - 2 weeks Print Language: Tanzanian
[2024-05-21 22:47] LABS: Alanine Aminotransferase 18 U/L (0-40); Albumin Level 4.3 g/dL (3.5-5.0); Alkaline Phosphatase 51 U/L (39-117); Anion Gap 12 (12-20); Aspartate Amino Transferase 18 U/L (5-37); Bilirubin Total 0.3 mg/dL (0.0-1.0); Blood Urea Nitrogen 15 mg/dL (9-16); Calcium 9.8 mg/dL (8.4-10.2); Carbon Dioxide 28 mmol/L (22-29); Chloride 109 mmol/L (96-108); Creatinine Clr Calc Pharmacy 81.6; Estimated Glomerular Filt Rate > 60; Glucose Random 116 mg/dL (60-115); Lipase 16 U/L (8-78); Potassium 3.7 mmol/L (3.3-5.1); Sodium 145 mmol/L (135-145); Total Protein 7.3 g/dL (6.5-8.0)
[2024-05-21 22:56] LABS: Troponin-I High Sensitivity < 2.7 ng/L (<3.5-35.0)
[2024-05-21] MEDS: Omeprazole 40 MG CAPSULE.DR PO (23:36)
[2024-05-21] MEDS: Magnesium Hydrox/Alum Hydrox 30 ML ORAL.SUSP PO (23:36)
[2024-05-21] MEDS: Milk of Magnesia 30 ML ORAL.SUSP PO (23:36)
[2024-05-21 23:39] VITALS: BP 147/79; PULSE 56; RESP 17; O2SAT 97
[2024-05-21 23:46] VITALS: BP 147/79; PULSE 56; RESP 17; TEMP 36.7; O2SAT 97
--- NOTE | 2024-05-21 23:46 | PC.NURSE ---
Pt medicated per [facility] Plan of care ongoing.
== END 2024-05-21 23:58 | disposition home or self-care (01) ==
PROVIDERS: Emergency Provider Internal Medicine; PCP Nurse Practitioner Family
DX: K21.9 Gastro-esophageal reflux disease without esophagitis (principal); K59.00 Constipation, unspecified; Z79.899 Other long term (current) drug therapy
CPT/HCPCS: 36415; 80053; 83690; 84484; 85025; 93005; 99283; 99285

== ENCOUNTER 2024-06-29 13:06 | Outpatient (AMB) | payer OTHER, SELFPAY ==
[2024-06-29 13:08] VITALS: BP 122/80; PULSE 66; O2SAT 98; BMI 28.8
--- NOTE | 2024-06-29 13:08 | MHC.PC.OV ---
Vital Signs 06/29/24 13:08 Height 5 ft 7 in Weight 184 lb 2 oz BMI 28.8 BP 122/80 Blood Pressure Location Rt brachial Position Sitting Pulse 66 Pulse Source Pulse Oximeter Pulse Oximetry (%) 98 Oxygen Delivery Method Room Air Intake Visit Reasons: 6M F/U Intake Note: pt is here for 6 month follow up, patient states ongoing stomach pain for 1 month and back pain in middle of back for 3-4 months. Environmental Change Analyst Required: No Accompanied by: Self / Same As Patient Allergies No Known Allergies Allergy (Verified 06/29/24 13:09) Medication List - Last Reconciled 06/29/24 by Robi Latif, MANAGER INSPECTION-[facility] acetaminophen 1,000 mg PO Q6H PRN gabapentin 300 mg PO DAILY PRN meloxicam 15 mg PO DAILY PRN 30 days pantoprazole (Protonix) 40 mg PO DAILY polyethylene glycol 3350 (Miralax) 17 grams PO DAILY sucralfate 1 g PO TID Tobacco use date assessed: 12/22/23 Dental Screening Dental Screen Date: 12/22/23 HPI 6M F/U HPI Details Constipation: Pt was previously seen in the ER for this. He does drink protein shakes, encouraged pt to stop these. Pt has been taking miralax. He was referred to GI but has not heard anything about this, will check on this. Pt c/o right flank pain. Denies any fever, chills, and hematuria. Reports the pain is more sharp, though can be dull, and is more intermittent, not always associated with movement. Will order UA, culture, and renal US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 Mother History of cancer of bone Hx of diabetes insipidus Social History Housing: House Alcohol intake: never Patient Tobacco Use Status: Never used Tobacco e-Cigarette/Vaping Use: Never Used Second Hand Smoke Exposure: No service: No Current occupational status: unemployed Cognitive needs: No Hearing needs: No Vision needs: Yes (glasses) Questionnaire PHQ-9 Over the last 2 weeks, how often have you been bothered by any of the following problems? 1. Little interest or pleasure in doing things: several days 2. Feeling down, depressed, or hopeless: several days Source: Developed by Drs. Harley Vazquez, Jourdan Cerda and colleagues, with an educational tracey from [employer]. Thrive Questionnaire Date Thrive assessed: 06/29/24 I am a: Patient What is your living situation today?: I have a place to live, but I am worried about losing it in the future Within the past 12 months, did the food you bought not last and you didn't have the money to get more?: Sometimes True Within the past 12 months, did you worry whether your food would run out before you got money to buy more?: Sometimes True Do you have trouble paying for medicines?: No Do you have trouble getting transportation to medical appointments?: No Do you have trouble paying your heating and electricity bill?: Yes Do you have trouble taking care of your child, family member or friend?: No Do you have trouble with day-to-day activities such as bathing, preparing meals, shopping, managing finances, etc.?: Yes Are you currently unemployed and looking for a job?: No Are you interested in more education?: No Please select the resources that you would like help with: None Currently or been in a relationship where the following occur: No concerns reported THRIVE Score: 4 ISAÍAS-7 AMB Questionnaire ISAÍAS-7 Date ISAÍAS - 7 assessed: 12/22/23 Source: Developed by Drs. Harley Vazquez, Jourdan Cerda and colleagues, with an educational tracey from [employer]. Review of Systems Const Reports as per HPI Physical exam (Primary Care) Vital Signs: Last Vital Signs Pulse 66 06/29/24 13:08 BP 122/80 06/29/24 13:08 Pulse Ox 98 06/29/24 13:08 Oxygen Delivery Method Room Air 06/29/24 13:08 BMI result Body Mass Index 28.8 Tobacco/Smoking Status: Tobacco use Status Tobacco use date assessed 12/22/23 06/29/24 13:10 Patient Tobacco Use Status Never used Tobacco 06/29/24 13:10 e-Cigarette/Vaping Use Never Used 06/29/24 13:10 Thrive Assessment: Date of Thrive Assessment Date Thrive assessed 06/29/24 06/29/24 13:10 Currently or been in a relationship where the following occur: No concerns reported Const General: cooperative Orientation/consciousness: patient oriented x3 Resp Effort & Inspection: normal respiratory effort Auscultation: clear to auscultation bilaterally Cardio Rate: regular rate Rhythm: regular rhythm Heart sounds: S1 normal heart sound present, S2 normal heart sound present and no murmurs Other: no cva tenderness noted bilat Neuro General: patient oriented x3 Psych Appearance: grossly normal Mental Status: mental status grossly normal Speech and movement: Normal speech and movement present Affect: normal affect Attitude: cooperative Thought process: Normal thought process present Thought content: Normal thought content present Insight: Good insight present (Psych) Judgement: Good judgement present (Psych) Coding Level of Care Code Est Pt Level 3 (24305) Diagnoses Right flank pain R10.9 Assessment & Plan Assessment & Plan (1) Right flank pain: Code(s): R10.9 - Unspecified abdominal pain Category: Medical Plan: US, UA, culture Plan The patient agreed to the use of a medical claims analyst for this encounter. Scribed for LATOYA Meade by Nilda Alejandre medical claims analyst, on 06/29/2024 at 13:40 EST. Orders: Orders US renal RT Today R10.9 - Unspecified abdominal pain Urine Culture Today R10.9 - Unspecified abdominal pain
== END 2024-06-29 14:04 | disposition home or self-care (01) ==
PROVIDERS: PCP Nurse Practitioner Family; Visit Provider Nurse Practitioner Family
DX: R10.9 Unspecified abdominal pain (principal)

== ENCOUNTER → 2024-06-29 13:06 | Outpatient (BNVA) | payer OTHER, SELFPAY | PROVIDERS: PCP Nurse Practitioner Family; Visit Provider Nurse Practitioner Family | DX: R10.9 Unspecified abdominal pain (principal) | CPT/HCPCS: 99212 ==

== ENCOUNTER 2024-07-04 09:36 | Outpatient (REF) | payer OTHER, SELFPAY ==
--- NOTE | ~2024-07-04 | US_ITS ---
EXAMINATION: US RETROPERITONEAL LIMITED, RIGHT (RENAL ONLY) CLINICAL INFORMATION: Right-sided flank pain. COMPARISON: Ultrasound abdomen 02/04/2022, CT abdomen pelvis 06/27/2014 TECHNIQUE: Ultrasound of the right kidney was performed FINDINGS: RIGHT KIDNEY: 9.5 x 4.3 x 4.6 cm (SAG x AP x TRV). The kidney is normal in size, contour, and echogenicity. Renal cortical thickness is normal. No definite calculi or focal parenchymal lesions. There is some nonspecific echogenic foci without shadowing or twinkle artifact. No hydronephrosis. US/US renal RT IMPRESSION: No significant abnormality is seen. Electronically signed by: Haroon Cruz MD 09/03/2024 10:21 AM TIFFANY GODFREY
== END 2024-07-04 09:37 | disposition home or self-care (01) ==
LOC: HO.US 09:36
PROVIDERS: PCP Nurse Practitioner Family; Visit Provider Nurse Practitioner Family
DX: R10.9 Unspecified abdominal pain (principal)
CPT/HCPCS: 76775

== ENCOUNTER 2024-09-12 15:24 | Outpatient (REF) | payer OTHER, SELFPAY | END 2024-09-12 15:25 | disposition home or self-care (01) | LOC: HO.US 15:24 | PROVIDERS: PCP Nurse Practitioner Family; Visit Provider Nurse Practitioner Family | DX: R39.9 Unspecified symptoms and signs involving the genitourinary system (principal) | CPT/HCPCS: 76775 ==

== ENCOUNTER 2024-11-15 14:08 | Outpatient (AMB) | payer OTHER, SELFPAY ==
[2024-11-15 14:36] VITALS: BP 126/80; PULSE 93; TEMP 37.3; O2SAT 98; BMI 28.8
--- NOTE | 2024-11-15 14:36 | A.OFFPC_ITS ---
Vital Signs 11/15/24 14:36 Height 5 ft 7 in Weight 184 lb BMI 28.8 BP 126/80 Blood Pressure Location Lt brachial Position Sitting Pulse 93 Pulse Source Pulse Oximeter Temp 99.1 F Temp Source Oral Pulse Oximetry (%) 98 Oxygen Delivery Method Room Air Intake Visit Reasons: 3 month follow up Structural Ironworker Required: No Accompanied by: Self / Same As Patient Allergies No Known Allergies Allergy (Verified 11/15/24 14:36) Medication List - Last Reconciled 11/15/24 by ISIDRO Wallace- acetaminophen 1,000 mg PO Q6H PRN gabapentin 300 mg PO DAILY PRN meloxicam 15 mg PO DAILY PRN 30 days pantoprazole (Protonix) 40 mg PO DAILY polyethylene glycol 3350 (Miralax) 17 grams PO DAILY sucralfate 1 g PO TID trazodone 50 mg PO BEDTIME PRN Tobacco use date assessed: 11/15/24 Dental Screening Dental Screen Date: 11/15/24 Did you have a dental visit in the last 12 months?: Yes Did you have a dental problem in the last 6 months where you did not have access to dental care?: No Was dental information given to patient?: Patient has dentist HPI 3 month follow up HPI Details Chief Complaint The patient presents with persistent right flank pain. History of Present Illness The patient is a 54-year-old male presenting with ongoing right flank pain. The pain has been described as intermittent, sharp, and sometimes dull, with occasional tightness. He reports that the pain has been moving superiorly in the right flank region and mentions that it is fairly sharp, with episodes that tend to come and go. The patient has not experienced any associated nausea, vomiting, hematuria, or urinary issues. Initial diagnostic imaging with ultrasound resulted negative findings. The pain has been persistent despite his efforts to manage it through regular stretching. He denies any significant past medical history related to similar complaints. Insomnia: will try a low dose trazodone Social History - Engages in regular stretching exercise s. Health Maintenance Review of Systems - Gastrointestinal: Denies nausea, vomit ing, or blood in stool. - Genitourinary: Denies hematuria or uri nary issues. Physical Exam General: Cooperative, healthy appearing, comfortable, no acute distress and well developed Orientation: Patient oriented x3 Limitations: No limitations Head: Normal to inspection Ears: Hearing grossly normal bilaterally Nose: Normal external nose present Face and sinus: Normal facial exam Eyes: Appearance normal, both eyes and all related structures Neck: Normal visual inspection and Yes full ROM Respiratory: Normal respiratory effort and able to speak in complete sentences. Clear to auscultation bilaterally Cardiovascular: Regular rate and rhythm. Normal S1 and S2 GI: Normal to inspection. Soft to palpation and nontender, except for some discomfort with palpation just superior to the right flank region Skin: No rashes or lesions noted Neuro: Patient oriented x3 Extremities: Normal to inspection Results - Tests and Imaging: - Ultrasound: Negat caroline. Plan - Obtain a Computed Tomography CT) scan to investigate possible underlying pathology or musculoskeletal issues. Discussion Notes I discussed with the patient the current ongoing right flank pain and the negative ultrasound findings. To further investigate the cause, I have advised a CT scan to better understand if there is any underlying pathology. I explained the potential causes of the pain, including musculoskeletal issues/back, and the plan to rule out these possibilities with additional imaging. No immediate risks, benefits, or alternatives were discussed with respect to specific tr eatments beyond diagnostic imaging. Follow-up discussions will be dependent on the CT findings. Patient Instructions - Continue regular stretching exercises. - Schedule a CT scan as advised to critical access hospital er assess the cause of the flank pain. 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 Mother History of cancer of bone Hx of diabetes insipidus Social History Housing: House Alcohol intake: never Patient Tobacco Use Status: Never used Tobacco e-Cigarette/Vaping Use: Never Used Second Hand Smoke Exposure: No service: No Current occupational status: unemployed Cognitive needs: No Hearing needs: No Vision needs: Yes (glasses) Questionnaire PHQ-9 Over the last 2 weeks, how often have you been bothered by any of the following problems? 1. Little interest or pleasure in doing things: several days 2. Feeling down, depressed, or hopeless: several days 3. Trouble falling or staying asleep, or sleeping too much: nearly every day 4. Feeling tired or having little energy: more than half the days 5. Poor appetite or overeating: several days 6. Feeling bad about yourself - or that you are a failure or have let yourself or your family down: more than half the days 7. Trouble concentrating on things, such as reading the newspaper or watching television: several days 8. Moving or speaking so slowly that other people could have noticed. Or the opposite - being so fidgety or restless that you have been moving around a lot more than usual: several days 9. Thoughts that you would be better off or of hurting yourself in some way: not at all Total score: 12 Depression Screening Interpretation: Positive (will have ana () call pt) Depression Screening Follow-up: Existing condition and Community Mental Health Worker F/U Depression Screening Done: Yes 88922 - PHQ-9 Billing: Yes Source: Developed by Drs. Harley Vazquez, Jeanna Kenyon, Jourdan Greer and colleagues, with an educational tracey from [employer]. Thrive Questionnaire Date Thrive assessed: 11/15/24 I am a: Patient What is your living situation today?: I have a place to live, but I am worried about losing it in the future Within the past 12 months, did the food you bought not last and you didn't have the money to get more?: Sometimes True Within the past 12 months, did you worry whether your food would run out before you got money to buy more?: Sometimes True Do you have trouble paying for medicines?: No Do you have trouble getting transportation to medical appointments?: No Do you have trouble paying your heating and electricity bill?: Yes Do you have trouble taking care of your child, family member or friend?: No Do you have trouble with day-to-day activities such as bathing, preparing meals, shopping, managing finances, etc.?: Yes Are you currently unemployed and looking for a job?: No Are you interested in more education?: No Please select the resources that you would like help with: None Currently or been in a relationship where the following occur: No concerns reported THRIVE Score: 4 AUDIT C Alcohol Use Questionnaire (AUDIT-C) 1. How often do you have a drink containing alcohol?: Never 2. How many drinks containing alcohol do you have on a typical day when you are drinking?: 3 or 4 3. How often do you have six or more drinks on one occasion?: Never Total Score: 1 Score Reviewed/Action Taken: Yes ISAÍAS-7 AMB Questionnaire ISAÍAS-7 Date ISAÍAS - 7 assessed: 11/15/24 Feeling nervous, anxious, or on edge: 3 = Nearly every day Not being able to stop or control worryin = More than half the days Worrying too much about different things: 3 = Nearly every day Trouble relaxin = More than half the days Being so restless that it is hard to sit still: 3 = Nearly every day Becoming easily annoyed or irritable: 2 = More than half the days Feeling afraid as if something awful might happen: 2 = More than half the days Total ISAÍAS-7 score (0-4 normal; 5-9 mild; 10-14 moderate; 15-21 severe): 17 Source: Developed by Drs. Harley Vazquez, Jeanna Kenyon, Jourdan Greer and colleagues, with an educational tracey from [employer]. ISAÍAS-7 Assessment Billing ISAÍAS-7 Assessment Tool: ISAÍAS-7 Assessment 12016 Physical exam (Primary Care) Vital Signs: Last Vital Signs Temp 99.1 F 11/15/24 14:36 Pulse 93 11/15/24 14:36 BP 126/80 11/15/24 14:36 Pulse Ox 98 11/15/24 14:36 Oxygen Delivery Method Room Air 11/15/24 14:36 BMI result Body Mass Index 28.8 Tobacco/Smoking Status: Tobacco use Status Tobacco use date assessed 11/15/24 11/15/24 14:38 Patient Tobacco Use Status Never used Tobacco 11/15/24 14:38 e-Cigarette/Vaping Use Never Used 11/15/24 14:38 PHQ-9: PHQ-9 Score PHQ-9: Total score 12 11/15/24 14:48 Depression Screening Interpretation: Positive (will have ana (PEÑA) call pt) Depression Screening Follow-up: Existing condition and Community Mental Health Worker F/U Thrive Assessment: Date of Thrive Assessment Date Thrive assessed 11/15/24 11/15/24 14:38 Currently or been in a relationship where the following occur: No concerns reported Coding Level of Care Code Est Pt Level 3 (17871) Diagnoses Right flank pain R10.9 Insomnia G47.00 Additional Codes ISAÍAS-7 Assessment Billing - ISAÍAS-7 Assessment Tool: ISAÍAS-7 Assessment 35796 ([id number]) PHQ-9 - 55865 - PHQ-9 Billing: Yes ([id number]) Assessment & Plan Assessment & Plan (1) Right flank pain: Code(s): R10.9 - Unspecified abdominal pain Category: Medical (2) Insomnia: Code(s): G47.00 - Insomnia, unspecified Category: Medical Plan . Orders: Orders CT abdomen pelvis wo IV con Today R10.9 - Unspecified abdominal pain Medications: New trazodone 50 mg PO BEDTIME PRN 30 tabs 3RF sleep
== END 2024-11-15 15:16 | disposition home or self-care (01) ==
PROVIDERS: PCP Nurse Practitioner Family; Visit Provider Nurse Practitioner Family
DX: R10.9 Unspecified abdominal pain (principal); G47.00 Insomnia, unspecified

== ENCOUNTER → 2024-11-15 14:08 | Outpatient (BNVA) | payer OTHER, SELFPAY | PROVIDERS: PCP Nurse Practitioner Family; Visit Provider Nurse Practitioner Family | DX: R10.9 Unspecified abdominal pain (principal); G47.00 Insomnia, unspecified | CPT/HCPCS: 96127; 99212 ==

== ENCOUNTER 2025-01-05 00:52 | Emergency (ER) | payer OTHER, SELFPAY ==
--- NOTE | ~2025-01-05 | CT_ITS ---
EXAMINATION: CT ABDOMEN AND PELVIS WITH CONTRAST CLINICAL INFORMATION: Right lower quadrant abdominal pain. Tenderness. COMPARISON: February 24, 2017. TECHNIQUE: Multidetector volumetric images were obtained from the superior aspect of the liver through the pubic symphysis following administration 85 mL of Omnipaque 350 intravenous contrast. Sagittal and coronal reformatted images were obtained on the technologist's workstation. Oral contrast: No This CT examination was performed using dose optimization techniques as appropriate, variously including the following: *Automated exposure control *Adjustment of mA and/or kV according to patient size (this includes techniques or standardized protocols for targeted exams where dose is matched to indication/reason for exam; i.e. extremities or head) *Use of iterative reconstruction technique DLP: 475 mGy centimeter. FINDINGS: LUNG BASES: Patchy pulmonary groundglass both lower lung lobe slightly Right middle lobe. LIVER, GALLBLADDER, AND BILIARY TREE: Liver measures 18 cm no focal mass. Portal veins, hepatic veins and intrahepatic portion of the IVC are patent. [Contracted. No pericholecystic fluid collection or gallbladder wall thickening. No intrahepatic or extrahepatic biliary ductal dilatation. PANCREAS: No focal mass. No peripancreatic fluid collection. No main pancreatic ductal dilatation. SPLEEN: 9 cm. No focal lesion. ADRENAL GLANDS: No nodular lesions. KIDNEYS AND URETERS: No hydronephrosis. No gross nephrolithiasis. Normal enhancement pattern of the renal parenchyma. Subcentimeter cyst, right kidney. No gross renal mass. BLADDER: Fluid-filled. GASTROINTESTINAL TRACT: Appendix is normal. Gas and fluid-filled prominent small bowel loops. Few scattered air-fluid levels, nonspecific. No pneumatosis intestinalis. No pneumoperitoneum. No ascites. No peripheral enhancing fluid collections in the peritoneal cavity. Scattered diverticula, sigmoid colon. No pericolonic edema pattern. Abundant food contents and fluid in the prominent stomach.. ABDOMINAL WALL: Small fat-containing umbilical hernia. LYMPH NODES: Prominent lymph nodes in the inguinal region. VASCULAR: No aneurysm or dissection, abdominal aorta. PELVIC VISCERA: Not enlarged prostate gland.. Focal calcification left pampiniform plexus region. OSSEOUS STRUCTURES: Bilateral facet joint hypertrophy L4-5 and L5-S1 level. Grade 1 anterolisthesis L4-5. Grade 1 retrolisthesis L3-4. Central spinal canal and bilateral neuroforamina stenosis at L4-5 and to a lesser extent L3-4 and L5-S1 levels. Sclerosis and syndesmophyte formation and sacroiliac joints. Multilevel marginal osteophyte formation and endplate sclerosis lower thoracic spine. Schmorl nodes in the endplates of T11-[address]/CT abdomen pelvis w IV con IMPRESSION: Normal appendix. Consider enteritis in the correct clinical settings. Small fat-containing umbilical hernia. Diverticular disease, sigmoid colon. Hepatomegaly, mild. Spondylosis L4-5 and L5-S1 resulting in central spinal canal and bilateral neuroforamina stenosis. Grade 1 anterolisthesis L4-5 and grade 1 retrolisthesis L3-4 on a degenerative basis. Fleischner guidelines were followed. Electronically signed by: Dalton Woods MD 01/05/2025 08:13 AM EDT
[2025-01-05 00:55] VITALS: BP 109/70; PULSE 77; RESP 18; TEMP 36.6; O2SAT 97; BMI 28.2
[2025-01-05 01:09] LABS: Basophils Percent Auto 0.3 % (0-2); Eosinophils Absolute Auto 0.2 X10*3/uL (0.0-0.4); Eosinophils Percent Auto 2.2 % (0-4); Hematocrit 45.1 % (42.0-52.0); Imm Gran Abs Auto 0.01 X10*3/uL (0.00-0.03); Imm Gran Pct Auto 0.1 % (0.0-0.4); Lymphocytes Absolute Auto 2.2 X10*3/uL (1.2-4.9); Lymphocytes Percent Auto 33.1 % (20-40); MANUAL DIFF FLAG NO; Mean Corpuscular HGB Conc 35.5 g/dl (31.0-36.0); Mean Corpuscular Hemoglobin 30.7 pg (27.0-33.0); Mean Corpuscular Volume 86.6 fL (80.0-98.0); Mean Platelet Volume 10.8 fL (9.4-12.4); Monocytes Absolute Auto 0.4 X10*3/uL (0.1-1.2); Neutrophils Absolute Auto 3.9 x10*3/uL (2.0-8.3); Neutrophils Percent Auto 58.3 % (45-73); Platelet Count 268 X10*3/uL (160-400); Red Blood Count 5.21 X10*6/uL (4.60-5.80); Red Cell Distribution Width 12.6 % (11.0-16.0); White Blood Count 6.7 X10*3/uL (4.8-10.8)
[2025-01-05 01:24] LABS: Alanine Aminotransferase 27 U/L (0-40); Albumin Level 4.5 g/dL (3.5-5.0); Alkaline Phosphatase 44 U/L (39-117); Anion Gap 14 (12-20); Aspartate Amino Transferase 35 U/L (5-37); Bilirubin Total 0.6 mg/dL (0.0-1.0); Blood Urea Nitrogen 18 mg/dL (9-16); Calcium 9.5 mg/dL (8.4-10.2); Carbon Dioxide 24 mmol/L (22-29); Chloride 108 mmol/L (96-108); Creatinine Clr Calc Pharmacy 83.8; Estimated Glomerular Filt Rate > 60; Glucose Random 114 mg/dL (60-115); Lipase 20 U/L (8-78); Potassium 3.8 mmol/L (3.3-5.1); Sodium 142 mmol/L (135-145); Total Protein 7.4 g/dL (6.5-8.0)
--- NOTE | 2025-01-05 05:43 | ED_ITS ---
HPI - General Adult General Chief complaint: Abdominal Pain Stated complaint: diarrhea, dizzy Time Seen by Provider: 01/05/25 05:43 History of Present Illness ED Provider: Samson NESS narrative: The patient is a 54-year-old male who has been having lower abdominal pain for about a week. Over the last 24 hours he has developed watery diarrhea. He has not been on antibiotics recently. No significant travel history. He has had nausea but no vomiting. No definite fever. Related Data Home Medications ?Medication ?Instructions ?Recorded ?Confirmed acetaminophen 500 mg tablet 1,000 mg PO Q6H PRN Pain 06/23/22 11/15/24 Previous Rx's ?Medication ?Instructions ?Recorded gabapentin 300 mg capsule 300 mg PO DAILY PRN 10/17/21 numbness/tingling #14 caps meloxicam 15 mg tablet 15 mg PO DAILY PRN pain 30 days 07/02/22 #30 tabs pantoprazole 40 mg tablet,delayed 40 mg PO DAILY #30 tabs 05/21/24 release (Protonix) polyethylene glycol 3350 17 17 g PO DAILY #510 grams 05/21/24 gram/dose oral powder (Miralax) sucralfate 1 gram tablet 1 g PO TID #90 tabs 05/21/24 trazodone 50 mg tablet 50 mg PO BEDTIME PRN sleep #30 tabs 11/15/24 Allergies Allergy/AdvReac Type Severity Reaction Status Date / Time No Known Allergies Allergy Verified 01/05/25 00:56 Review of Systems 2 Review of Systems: Yes all other systems are reviewed and are negative PMFSH Past Medical History Medical History Heart murmur 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 Mother History of cancer of bone Hx of diabetes insipidus Social History Social History Housing: House Alcohol intake: never Patient Tobacco Use Status: Never used Tobacco Smoked in Last 30 Days: No e-Cigarette/Vaping Use: Never Used Second Hand Smoke Exposure: No Use of substances other than those prescribed or required for medical reasons: No Advance Directives: No Advance Directives Information Provided: Yes Do you have a plan to hurt others: No Plan service: No Current occupational status: unemployed Cognitive needs: No Hearing needs: No Vision needs: Yes (glasses) Physical Exam ED Vital Signs: Vital Signs - 24 hr 01/05/25 00:55 01/05/25 07:33 Temperature 98 F 97.2 F Pulse Rate 77 80 Respiratory Rate 18 16 Blood Pressure 109/70 133/85 Pulse Oximetry 97 97 Oxygen Delivery Method Room Air Room Air BMI result Body Mass Index 28.2 Const Other: Patient looks as though he is ordinarily healthy and athletic 54-year-old male. He did not appear in acute distress. Orientation/consciousness: patient oriented x3 HENMT Other: Face is symmetrical. Mucous membranes moist. Eyes General: appearance normal, both eyes and all related structures Neck Neck: Yes normal visual inspection and Yes full ROM Resp Effort & Inspection: normal respiratory effort Auscultation: clear to auscultation bilaterally Cardio Rate: regular rate Rhythm: regular rhythm Heart sounds: S1 normal heart sound present and S2 normal heart sound present GI Other: The abdomen is flat and soft. He has tenderness in the right lower quadrant. Skin Other: Skin is pale and dry Neuro General: patient oriented x3, gait normal, tone normal, moves all extremities, no focal motor deficits and CN's II-XI intact bilaterally Extrem Other: no peripheral edema Medications Administered Discontinued Medications Generic Name Dose Route Start Last Admin Trade Name Preet PRN Reason Stop Dose Admin Iohexol 85 ml 01/05/25 05:55 01/05/25 05:56 Iohexol 350 Mg/Ml 100 Ml Infus..Btl IV 01/05/25 05:56 85 ml ONCE ONE Administration Medical Decision Making Medical Decision Making MDM Narrative: patient is a 54-year-old male who has had lower abdominal exam for several days and more recently has had watery, nonbloody diarrhea. on physical exam he is tender in the right lower quadrant. His CBC is normal with a normal white count and differential. LFTs are normal, lipase is normal, electrolytes are normal. Vital signs are normal. A CT scan to evaluate his right ear lower quadrant tenderness did not show any acute surgical process. He has a normal appendix. He did have a lot of fluid-filled bowel including the small intestine and large intestine. I explained to the patient that he may well have ongoing diarrhea. I ordered stool studies but he was not able to produce any diarrhea in the emergency department. He will be discharged with an outpatient order for stool studies. He should follow up with his regular doctor. He was advised to use loperamide. He should follow the BRAT diet. Lab Data 01/05/25 01:03 01/05/25 01:03 Labs: Lab Results 01/05/25 Range/Units 01:03 WBC 6.7 (4.8-10.8) X10*3/uL RBC 5.21 (4.60-5.80) X10*6/uL Hgb 16.0 (14.0-18.0) g/dl Hct 45.1 (42.0-52.0) % MCV 86.6 (80.0-98.0) fL MCH 30.7 (27.0-33.0) pg MCHC 35.5 (31.0-36.0) g/dl RDW 12.6 (11.0-16.0) % Plt Count 268 (160-400) X10*3/uL MPV 10.8 (9.4-12.4) fL Immature Gran % (Auto) 0.1 (0.0-0.4) % Neut % (Auto) 58.3 (45-73) % Lymph % (Auto) 33.1 (20-40) % [place] % (Auto) 6.0 (2-11) % Eos % (Auto) 2.2 (0-4) % Baso % (Auto) 0.3 (0-2) % Lymph # (Auto) 2.2 (1.2-4.9) X10*3/uL [place] # (Auto) 0.4 (0.1-1.2) X10*3/uL Eos # (Auto) 0.2 (0.0-0.4) X10*3/uL Baso # (Auto) 0.0 (0.0-0.2) X10*3/uL Abs Immat Gran (auto) 0.01 (0.00-0.03) X10*3/uL Absolute Neuts (auto) 3.9 (2.0-8.3) x10*3/uL Absolute Nucleated RBC 0.000 (0.0-0.012) X10*3/uL Nucleated RBC % (auto) 0.0 (0.0-0.2) /100WBC Sodium 142 (135-145) mmol/L Potassium 3.8 (3.3-5.1) mmol/L Chloride 108 (96-108) mmol/L Carbon Dioxide 24 (22-29) mmol/L Anion Gap 14 (12-20) BUN 18 H (9-16) mg/dL Creatinine 1.03 (0.5-1.4) mg/dL Estim Creat Clear Calc 83.8 Estimated GFR > 60 Random Glucose 114 (60-115) mg/dL Calcium 9.5 (8.4-10.2) mg/dL Total Bilirubin 0.6 (0.0-1.0) mg/dL AST 35 (5-37) U/L ALT 27 (0-40) U/L Alkaline Phosphatase 44 (39-117) U/L Total Protein 7.4 (6.5-8.0) g/dL Albumin 4.5 (3.5-5.0) g/dL Lipase 20 (8-78) U/L Discharge Plan Discharge Clinical Impression: Diarrhea Patient Disposition: Home, Self-Care Instructions: Acute Diarrhea (ED) Additional Instructions: The CAT scan you had today shows that you have a lot of liquid in your intestines and so you will probably have ongoing diarrhea for awhile. However there is no sign of any significant inflammation or other apparently dangerous process. I think it would be useful for you to submit a stool sample for testing. I have put in orders for testing of stool. If you are able to collect a stool sample at home you can return the sample to the lab. When people have diarrhea recommended foods include bananas, rice, applesauce, and toast. This is also known as the BRAT diet. You may also use the [id number] antidiarrhea medication Imodium (loperamide). Use as directed. Please follow up with your regular doctor soon. Return to the emergency room if worse. Prescriptions: No Action acetaminophen 500 mg Tablet 1,000 mg PO Q6H PRN (Reason: Pain) pantoprazole [Protonix] 40 mg tablet,delayed release (DR/EC) 40 mg PO DAILY Qty: 30 0RF sucralfate 1 gram tablet 1 g PO TID Qty: 90 0RF polyethylene glycol 3350 [Miralax] 17 gram/dose powder 17 g PO DAILY Qty: 510 0RF gabapentin 300 mg capsule 300 mg PO DAILY PRN (Reason: numbness/tingling) Qty: 14 0RF meloxicam 15 mg tablet 15 mg PO DAILY PRN (Reason: pain) 30 Days Qty: 30 2RF trazodone 50 mg tablet 50 mg PO BEDTIME PRN (Reason: sleep) Qty: 30 3RF Referrals: Robi Latif, MANAGER ENT-BC [Primary Care Provider] - Discharge Date/Time: 01/05/25 07:33 Print Language: Greenlandic
[2025-01-05] MEDS: iohexoL 350 MG/ML 100 ML INFUS..BTL 85 ML IV (05:56)
[2025-01-05 07:33] VITALS: BP 133/85; PULSE 80; RESP 16; TEMP 36.2; O2SAT 97
== END 2025-01-05 07:33 | disposition home or self-care (01) ==
PROVIDERS: Emergency Provider Emergency Medicine; PCP Nurse Practitioner Family
DX: R19.7 Diarrhea, unspecified (principal)
CPT/HCPCS: 36415; 74177; 80053; 83690; 85025; 99284; Q9967

== ENCOUNTER → 2025-01-05 05:05 | Outpatient (BNV) | payer OTHER, SELFPAY | PROVIDERS: Emergency Provider Emergency Medicine; PCP Nurse Practitioner Family; Visit Provider Radiology Diagnostic Radiology | DX: K44.9 Diaphragmatic hernia without obstruction or gangrene (principal); R16.0 Hepatomegaly, not elsewhere classified; M47.816 Spondylosis without myelopathy or radiculopathy, lumbar region | CPT/HCPCS: 74177 ==

== ENCOUNTER 2025-02-07 15:03 | Outpatient (AMB) | payer OTHER, SELFPAY ==
--- NOTE | 2025-02-07 15:04 | A.OFFPC_ITS ---
Vital Signs 02/07/25 15:06 Height 5 ft 7 in Weight 185 lb BMI 29.0 BP 120/75 Blood Pressure Location Rt brachial Position Sitting Pulse 81 Pulse Source Pulse Oximeter Temp 98.5 F Temp Source Oral Pulse Oximetry (%) 98 Oxygen Delivery Method Room Air Intake Visit Reasons: PE Environmental Lawyer Required: No Accompanied by: Self / Same As Patient Allergies No Known Allergies Allergy (Verified 02/07/25 15:32) Medication List - Last Reconciled 02/07/25 by ISIDRO Wallace-TOMÁS acetaminophen 1,000 mg PO Q6H PRN gabapentin 300 mg PO DAILY PRN meloxicam 15 mg PO DAILY PRN 30 days pantoprazole (Protonix) 40 mg PO DAILY polyethylene glycol 3350 (Miralax) 17 grams PO DAILY sucralfate 1 g PO TID trazodone 50 mg PO BEDTIME PRN Tobacco use date assessed: 02/07/25 Dental Screening Dental Screen Date: 02/07/25 Did you have a dental visit in the last 12 months?: Yes Was dental information given to patient?: Patient has dentist HPI PE HPI Details History of Present Illness The patient is a 54-year-old male presenting for a physical exam and evaluation of right flank discomfort. The patient describes the discomfort as intermittent, occasionally radiating anteriorly and laterally on the right side. His prior m edical history reveals issues with lower back, as seen in past imaging which did not show hydronephrosis or kidney stones. He does not report any issues with urination, chest pain, shortness of breath, or general abdominal pain. Health Maintenance - Colon screening is up to date. - PSA (Prostate-Specific Antigen) test o rdered during the visit. Social History Review of Systems - Genitourinary: Denies any urinary issu es such as difficulty starting, weak stream, or incomplete bladder emptying. - Respiratory: Denies shortness of breat h. - Cardiovascular: Denies chest pain. - Gastrointestinal: Denies abdominal darinel n, reports intermittent right flank discomfort. Physical Exam General: Cooperative, healthy appearing, comfortable, no acute distress and well developed Orientation: Patient oriented x3 Limitations: No limitations Head: Normal to inspection Ears: Hearing grossly normal bilaterally Nose: Normal external nose present Face and sinus: Normal facial exam Eyes: Appearance normal, both eyes and all related structures Neck: Normal visual inspection and Yes full ROM Respiratory: Normal respiratory effort and able to speak in complete sentences. Clear to auscultation bilaterally Cardiovascular: Regular rate and rhythm. Normal S1 and S2 :No CVA tenderness noted bilat GI: Normal to inspection. Soft to palpation and nontender, Skin: No rashes or lesions noted Neuro: Patient oriented x3 Extremities: Normal to inspection Results Plan During the visit, I ordered a PSA test to keep up with prostate health monitoring. I will perform laboratory tests to evaluate the patient's intermittent right flank discomfort. His history of lower back issues and clear imaging suggest potential nerve involvement. We will examine the lab results to guide further action. There is no indication of acute urinary or cardiovascular concerns based on symptom evaluation. Discussion Notes I discussed with the patient the likelihood that his right flank discomfort may involve nerve-related issues, considering his lower back history. I explained the importance of conducting a PSA test for routine prostate health screening and informed him about the value of further lab tests to ensure no underlying issues are missed. The patient was informed of the procedures and tests to be conducted and agreed with the plan. We discussed monitoring the situation closely and I provided anticipatory guidance on what symptoms would warrant immediate attention. Patient Instructions - Follow up on PSA test with the provide r. - Monitor for any changes in symptoms, e specially increased pain or difficulty in urination. - Notify the provider of any new symptom s or concerns. 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 Mother History of cancer of bone Hx of diabetes insipidus Social History Housing: House Alcohol intake: never Patient Tobacco Use Status: Never used Tobacco e-Cigarette/Vaping Use: Never Used Second Hand Smoke Exposure: No service: No Current occupational status: unemployed Cognitive needs: No Hearing needs: No Vision needs: Yes (glasses) Questionnaire PHQ-9 Over the last 2 weeks, how often have you been bothered by any of the following problems? 1. Little interest or pleasure in doing things: several days 2. Feeling down, depressed, or hopeless: several days 3. Trouble falling or staying asleep, or sleeping too much: nearly every day 4. Feeling tired or having little energy: more than half the days 5. Poor appetite or overeating: several days 6. Feeling bad about yourself - or that you are a failure or have let yourself or your family down: more than half the days 7. Trouble concentrating on things, such as reading the newspaper or watching television: several days 8. Moving or speaking so slowly that other people could have noticed. Or the opposite - being so fidgety or restless that you have been moving around a lot more than usual: several days 9. Thoughts that you would be better off or of hurting yourself in some way: not at all Total score: 12 Depression Screening Interpretation: Positive (not interested in therapy currently, denies any si or hi) Depression Screening Follow-up: Existing condition and Community Mental Health Worker F/U Depression Screening Done: Yes 53595 - PHQ-9 Billing: Yes Source: Developed by Drs. Harley Vazquez, Jeanna Kenyon, Jourdan Greer and colleagues, with an educational tracey from [employer]. Thrive Questionnaire Date Thrive assessed: 02/07/25 I am a: Patient What is your living situation today?: I have a place to live, but I am worried about losing it in the future Within the past 12 months, did the food you bought not last and you didn't have the money to get more?: Sometimes True Within the past 12 months, did you worry whether your food would run out before you got money to buy more?: Sometimes True Do you have trouble paying for medicines?: No Do you have trouble getting transportation to medical appointments?: No Do you have trouble paying your heating and electricity bill?: Yes Do you have trouble taking care of your child, family member or friend?: No Do you have trouble with day-to-day activities such as bathing, preparing meals, shopping, managing finances, etc.?: Yes Are you currently unemployed and looking for a job?: No Are you interested in more education?: No Please select the resources that you would like help with: None Currently or been in a relationship where the following occur: No concerns reported THRIVE Score: 4 AUDIT C Alcohol Use Questionnaire (AUDIT-C) 1. How often do you have a drink containing alcohol?: Never 2. How many drinks containing alcohol do you have on a typical day when you are drinking?: 3 or 4 3. How often do you have six or more drinks on one occasion?: Never Total Score: 1 Score Reviewed/Action Taken: Yes ISAÍAS-7 AMB Questionnaire ISAÍAS-7 Date ISAÍAS - 7 assessed: 02/07/25 Feeling nervous, anxious, or on edge: 3 = Nearly every day Not being able to stop or control worryin = More than half the days Worrying too much about different things: 3 = Nearly every day Trouble relaxin = More than half the days Being so restless that it is hard to sit still: 3 = Nearly every day Becoming easily annoyed or irritable: 2 = More than half the days Feeling afraid as if something awful might happen: 2 = More than half the days Total ISAÍAS-7 score (0-4 normal; 5-9 mild; 10-14 moderate; 15-21 severe): 17 Source: Developed by Drs. Harley Vazquez, Jeanna Kenyon, Jourdan Greer and colleagues, with an educational tracey from [employer]. ISAÍAS-7 Assessment Billing ISAÍAS-7 Assessment Tool: ISAÍAS-7 Assessment 02548 (denies any si or hi, will contact me if wants to see a therapist or seek more help.) Physical exam (Primary Care) Vital Signs: Last Vital Signs Temp 98.5 F 02/07/25 15:06 Pulse 81 02/07/25 15:06 BP 120/75 02/07/25 15:06 Pulse Ox 98 02/07/25 15:06 Oxygen Delivery Method Room Air 02/07/25 15:06 BMI result Body Mass Index 29.0 Tobacco/Smoking Status: Tobacco use Status Tobacco use date assessed 02/07/25 02/07/25 15:08 Patient Tobacco Use Status Never used Tobacco 02/07/25 15:08 e-Cigarette/Vaping Use Never Used 02/07/25 15:08 PHQ-9: PHQ-9 Score PHQ-9: Total score 12 02/07/25 15:32 Depression Screening Interpretation: Positive (not interested in therapy currently, denies any si or hi) Depression Screening Follow-up: Existing condition and Community Mental Health Worker F/U Thrive Assessment: Date of Thrive Assessment Date Thrive assessed 02/07/25 02/07/25 15:08 Currently or been in a relationship where the following occur: No concerns reported Coding Level of Care Code Est Pt Prev Care 40-64y(66302) Diagnoses Physical exam Z00.00 Screening PSA (prostate specific antigen) Z12.5 Additional Codes PHQ-9 - 16728 - PHQ-9 Billing: Yes ([id number]) ISAÍAS-7 Assessment Billing - ISAÍAS-7 Assessment Tool: ISAÍAS-7 Assessment [id number] ([id number]) Assessment & Plan Assessment & Plan (1) Physical exam: Code(s): Z00.00 - Encounter for general adult medical examination without abnormal findings Category: Medical (2) Screening PSA (prostate specific antigen): Code(s): Z12.5 - Encounter for screening for malignant neoplasm of prostate Category: Medical Plan . Orders: Orders Complete Blood Count Auto Diff Today Z00.00 - Encounter for general adult medical examination without abnormal findings Comprehensive [place]. Panel Fast Today Z00.00 - Encounter for general adult medical examination without abnormal findings TSH reflex Free T4 Today Z00.00 - Encounter for general adult medical examination without abnormal findings UA CC w/rflx Micro + Cult Today Z00.00 - Encounter for general adult medical examination without abnormal findings Lipid Panel Today Z00.00 - Encounter for general adult medical examination without abnormal findings Prostate Specific Antigen Scr Today Z12.5 - Encounter for screening for malignant neoplasm of prostate
[2025-02-07 15:06] VITALS: BP 120/75; PULSE 81; TEMP 36.9; O2SAT 98; BMI 29.0
== END 2025-02-07 15:50 | disposition home or self-care (01) ==
LOC: HO.HMCC 15:04
PROVIDERS: PCP Nurse Practitioner Family; Visit Provider Nurse Practitioner Family
DX: Z00.00 Encounter for general adult medical examination without abnormal findings (principal); Z12.5 Encounter for screening for malignant neoplasm of prostate

== ENCOUNTER → 2025-02-07 15:03 | Outpatient (BNVA) | payer OTHER, SELFPAY | PROVIDERS: PCP Nurse Practitioner Family; Visit Provider Nurse Practitioner Family | DX: Z00.00 Encounter for general adult medical examination without abnormal findings (principal); R10.9 Unspecified abdominal pain | CPT/HCPCS: 96127; 99396 ==

== ENCOUNTER 2025-02-08 16:29 | Outpatient (AMB) | payer OTHER, SELFPAY ==
--- NOTE | 2025-02-08 16:31 | A.OFFVIS_ITS ---
Vital Signs 02/08/25 16:32 Height 5 ft 7 in Weight 182 lb BMI 28.5 BP 132/87 Blood Pressure Location Lt brachial Position Sitting Pulse 74 Pulse Oximetry (%) 100 Oxygen Delivery Method Room Air Intake Visit Reasons: Follow up GERD Intake Note: Patient follow up for GERD. Patient cc: abdominal pain with some bloating,, denies any other GI issues for today visit. 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 He does have a lot of aches and pains in his back. We review his labs and US and we again review the preventative care for fatty liver. We discussed wt control, ETOH avoidance and BS control if he ever becomes diabetic. He controls his GERD with avoiding diet trigger and I suggest TUMS. He saw Hansa today and had his scope rescheduled. Apparently, he was sent the wrong information regarding the scope date and this was our fault. His scope is 06/23 with follow 07/07. (2) GERD (gastroesophageal reflux disease): ?Code(s): K21.9 - Gastro-esophageal reflux disease without esophagitisS: COLONOSCOPY Findings: Terminal Ileum: Not evaluated Cecum:? Normal Ascending Colon:? Normal Transverse Colon:? Normal Descending Colon:? Moderate diverticulosis Sigmoid Colon:? Moderate diverticulosis Rectum:? Normal Ano-rectum:? Moderate internal hemorrhoids Colon preparation: Excellent ? Impression and Post Procedure Diagnosis: Colonoscopy Findings: No polyps were detected. Moderate diverticulosis seen in the left colon Moderate hemorrhoids on retroflexed exam. Plan: Patient has an appointment on 07/07/22 in the GI Clinic with? Elida Choudhary NP. Repeat Colonoscopy in 9 to 10 years (earlier if pt has new GI symptoms or family hx). BIOPSY CT ABDOMEN AND PELVIS 01/05/2025 FINDINGS: LUNG BASES: Patchy pulmonary groundglass both lower lung lobe slightly Right middle lobe. LIVER, GALLBLADDER, AND BILIARY TREE: Liver measures 18 cm no focal mass. Portal veins, hepatic veins and intrahepatic portion of the IVC are patent. [Contracted. No pericholecystic fluid collection or gallbladder wall thickening. No intrahepatic or extrahepatic biliary ductal dilatation. PANCREAS: No focal mass. No peripancreatic fluid collection. No main pancreatic ductal dilatation. SPLEEN: 9 cm. No focal lesion. ADRENAL GLANDS: No nodular lesions. KIDNEYS AND URETERS: No hydronephrosis. No gross nephrolithiasis. Normal enhancement pattern of the renal parenchyma. Subcentimeter cyst, right kidney. No gross renal mass. BLADDER: Fluid-filled. GASTROINTESTINAL TRACT: Appendix is normal. Gas and fluid-filled prominent small bowel loops. Few scattered air-fluid levels, nonspecific. No pneumatosis intestinalis. No pneumoperitoneum. No ascites. No peripheral enhancing fluid collections in the peritoneal cavity. Scattered diverticula, sigmoid colon. No pericolonic edema pattern. Abundant food contents and fluid in the prominent stomach.. ABDOMINAL WALL: Small fat-containing umbilical hernia. LYMPH NODES: Prominent lymph nodes in the inguinal region. VASCULAR: No aneurysm or dissection, abdominal aorta. PELVIC VISCERA: Not enlarged prostate gland.. Focal calcification left pampiniform plexus region. OSSEOUS STRUCTURES: Bilateral facet joint hypertrophy L4-5 and L5-S1 level. Grade 1 anterolisthesis L4-5. Grade 1 retrolisthesis L3-4. Central spinal canal and bilateral neuroforamina stenosis at L4-5 and to a lesser extent L3-4 and L5-S1 levels. Sclerosis and syndesmophyte formation and sacroiliac joints. Multilevel marginal osteophyte formation and endplate sclerosis lower thoracic spine. Schmorl nodes in the endplates of T11-[address]/CT abdomen pelvis w IV con IMPRESSION: Normal appendix. Consider enteritis in the correct clinical settings. Small fat-containing umbilical hernia. Diverticular disease, sigmoid colon. Hepatomegaly, mild. Spondylosis L4-5 and L5-S1 resulting in central spinal canal and bilateral neuroforamina stenosis. Grade 1 anterolisthesis L4-5 and grade 1 retrolisthesis L3-4 on a degenerative basis. Laboratory Tests 01/05/25 01:03 WBC 6.7 Hgb 16.0 Hct 45.1 Plt Count 268 Estimated GFR > 60 Total Bilirubin 0.6 AST 35 ALT 27 Alkaline Phosphatase 44 Lipase 20 TODAY'S VISIT PATIENT HAS BEEN LOST FOLLOW-UP SINCE 01/2022 He continues to have the same pain in the RUQ that radiates to his back, he also reports pain that goes around his waist and down t he back of his legs. He was seen in the ER in 12/2024 for diarrhea which has since resolved. He can not relate the pain to eating or BM, mostly it is worsened with bending, and physical activity. He continues to worry about his liver and about an injury that he received in childhood that involved landing on a sharp ice cycle in the right lower quadrant area. I reassure him that all of the imaging of his liver has been good in his liver enzymes are similarly in good shape. As far as the other injury I think we would have seen something on imaging or on his colonoscopies if he had some sort of lingering injury although I suppose if the injury was penetrating there could be some scar tissue. To date he has had the unremarkable upper endoscopy in 2018, a negative gastric emptying study in 2017, a negative HIDA scan in 2016, many negative CAT scans, and relatively unremarkable lab work. Because he has never had straight out diarrhea we except for this 1 time which likely was acute and resolved we have never done any food allergy testing or celiac panels similarly there has been no indication on colonoscopy or upper endoscopy to indicate this needs investigation. He does have occasional bloating after eating but this is hardly a concerning pathology. At this point I think will do a small-bowel follow-through study to see if there is any motility problems. However, overall I think that this is a muscu loskeletal presentation likely with pathology in the thoracic spine. Cat scans, which of course of the abdomen pelvis do not give a good evaluation of the thoracic spine, did show generalized osteoarthritis with osteophytes and Schmorl nodes particularly bad in the lumbar spine but also noted at T11-T12. He describes his pain as burning which is more consistent with a radicular pathology. To put this monitor RAST I will try to get a thoracic MRI of his spine. An x- ray of his thoracic spine did show generalized osteoarthritis but of course isn't sensitive to enough to see if there is any pinched nerve that could be causing abdominal pathology. He is also agreeable to the motility study. Of note he does not have nausea vomiting trouble swallowing heartburn weight loss or outright chronic constipation or diarrhea. He has complaints of trouble with his urine stream and what he describes as foaming of his urine but for this I direct him to Urology as this is out of my area of expertise. Return office visit in 3 months. 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 Mother History of cancer of bone Hx of diabetes insipidus Social History Housing: House Alcohol intake: never Patient Tobacco Use Status: Never used Tobacco e-Cigarette/Vaping Use: Never Used Second Hand Smoke Exposure: No service: No Current occupational status: unemployed Cognitive needs: No Hearing needs: No Vision needs: Yes (glasses) Review of Systems Const Denies fatigue, Denies fever(s), Denies night sweats, Denies poor appetite and Denies weight loss ENT Reports Normal hearing present, Denies dental pain, Denies dysphagia, Denies hearing loss, Denies mouth pain, Denies odynophagia, Denies throat swelling, Denies tongue swelling and Reports other (Dentition adequate) Card Reports no additional complaints Resp Reports no additional complaints GI Details: Reports abdominal pain, Denies melena, Denies bloating, Denies hematochezia, Denies constipation, Denies GI cramping, Denies dysphagia, Denies excessive flatus, Denies early satiety, Denies heartburn, Denies diarrhea, Denies nausea, Denies odynophagia, Denies vomiting and Denies hematemesis Details: Foam urine Musc Reports back pain, Reports myalgias, Reports arthralgias and Reports stiffness Skin/Breast Denies pruritus, Denies lesions, Denies rash and Denies jaundice Neuro Reports Normal hearing present and Denies Abnormal speech present Endo Denies fatigue Aller/Immun Denies throat swelling and Denies tongue swelling Physical Exam Vital Signs: Last Vital Signs Pulse 74 02/08/25 16:32 BP 132/87 02/08/25 16:32 Pulse Ox 100 02/08/25 16:32 Oxygen Delivery Method Room Air 02/08/25 16:32 BMI result Body Mass Index 28.5 Const General: cooperative, no acute distress, well developed and well groomed Nutritional Appearance: well nourished and overweight Orientation/consciousness: oriented to person, oriented to place and oriented to time Limitations: No language barrier HEENT Head: Yes normocephalic and Yes atraumatic Eyes General: appearance normal, both eyes and all related structures Pupils: Equal, round and reactive pupils present Neck Neck: Yes normal visual inspection and Yes no lymphadenopathy Thyroid: Thyroid normal Resp Effort & Inspection: normal respiratory effort and able to speak in complete sentences Auscultation: clear to auscultation bilaterally Cardio Rate: regular rate Rhythm: regular rhythm Heart sounds: Normal, physiologic split S2 sound present Peripheral pulses: radial pulses present and posterior tibial pulses present GI Inspection: No distended and No Abdominal panniculus present Palpation (GI): Soft to palpation, nontender, no guarding, not rigid and No hepatosplenomegaly present Percussion: Yes normal to percussion Auscultation: normal bowel sounds Rectal Exam - Male: Yes deferred Back/Spine/Pelvis Thoracic/Lumbar Spine: thoraco-lumbar spasm, thoracic spinal tenderness at T11 and at T12 and straight leg raise positive Skin General skin exam: no rashes or lesions noted, turgor normal, skin not dry, no jaundice, No spider nevi and no striae Rashes: no rashes Nails: normal Neuro General: oriented to person, oriented to place and oriented to time Cranial nerves: Yes Equal, round and reactive pupils present and Yes Normal hearing present Speech: No Abnormal speech present Extrem General: Yes normal to inspection, No clubbing, No cyanosis and No edema Psych Appearance: grossly normal and well kempt Mental Status: mental status grossly normal Speech and movement: Normal speech and movement present Affect: normal affect Attitude: cooperative Thought process: Normal thought process present and not confabulating Thought content: Normal thought content present Insight: Limited insight present (Psych) Judgement: Limited judgement present (Psych) Results Reviewed Results Reviewed: COLONOSCOPY Findings: Terminal Ileum: Not evaluated Cecum:? Normal Ascending Colon:? Normal Transverse Colon:? Normal Descending Colon:? Moderate diverticulosis Sigmoid Colon:? Moderate diverticulosis Rectum:? Normal Ano-rectum:? Moderate internal hemorrhoids Colon preparation: Excellent ? Impression and Post Procedure Diagnosis: Colonoscopy Findings: No polyps were detected. Moderate diverticulosis seen in the left colon Moderate hemorrhoids on retroflexed exam. Plan: Patient has an appointment on 07/07/22 in the GI Clinic with? Elida Choudhary NP. Repeat Colonoscopy in 9 to 10 years (earlier if pt has new GI symptoms or family hx). BIOPSY CT ABDOMEN AND PELVIS 01/05/2025 FINDINGS: LUNG BASES: Patchy pulmonary groundglass both lower lung lobe slightly Right middle lobe. LIVER, GALLBLADDER, AND BILIARY TREE: Liver measures 18 cm no focal mass. Portal veins, hepatic veins and intrahepatic portion of the IVC are patent. [Contracted. No pericholecystic fluid collection or gallbladder wall thickening. No intrahepatic or extrahepatic biliary ductal dilatation. PANCREAS: No focal mass. No peripancreatic fluid collection. No main pancreatic ductal dilatation. SPLEEN: 9 cm. No focal lesion. ADRENAL GLANDS: No nodular lesions. KIDNEYS AND URETERS: No hydronephrosis. No gross nephrolithiasis. Normal enhancement pattern of the renal parenchyma. Subcentimeter cyst, right kidney. No gross renal mass. BLADDER: Fluid-filled. GASTROINTESTINAL TRACT: Appendix is normal. Gas and fluid-filled prominent small bowel loops. Few scattered air-fluid levels, nonspecific. No pneumatosis intestinalis. No pneumoperitoneum. No ascites. No peripheral enhancing fluid collections in the peritoneal cavity. Scattered diverticula, sigmoid colon. No pericolonic edema pattern. Abundant food contents and fluid in the prominent stomach.. ABDOMINAL WALL: Small fat-containing umbilical hernia. LYMPH NODES: Prominent lymph nodes in the inguinal region. VASCULAR: No aneurysm or dissection, abdominal aorta. PELVIC VISCERA: Not enlarged prostate gland.. Focal calcification left pampiniform plexus region. OSSEOUS STRUCTURES: Bilateral facet joint hypertrophy L4-5 and L5-S1 level. Grade 1 anterolisthesis L4-5. Grade 1 retrolisthesis L3-4. Central spinal canal and bilateral neuroforamina stenosis at L4-5 and to a lesser extent L3-4 and L5-S1 levels. Sclerosis and syndesmophyte formation and sacroiliac joints. Multilevel marginal osteophyte formation and endplate sclerosis lower thoracic spine. Schmorl nodes in the endplates of T11-[address]/CT abdomen pelvis w IV con IMPRESSION: Normal appendix. Consider enteritis in the correct clinical settings. Small fat-containing umbilical hernia. Diverticular disease, sigmoid colon. Hepatomegaly, mild. Spondylosis L4-5 and L5-S1 resulting in central spinal canal and bilateral neuroforamina stenosis. Grade 1 anterolisthesis L4-5 and grade 1 retrolisthesis L3-4 on a degenerative basis. Laboratory Tests 01/05/25 01:03 WBC 6.7 Hgb 16.0 Hct 45.1 Plt Count 268 Estimated GFR > 60 Total Bilirubin 0.6 AST 35 ALT 27 Alkaline Phosphatase 44 Lipase 20 Assessment & Plan Assessment & Plan (1) Abdominal pain: Code(s): R10.9 - Unspecified abdominal pain Category: Medical (2) Thoracic spondylosis with myelopathy: Code(s): M47.14 - Other spondylosis with myelopathy, thoracic region Category: Medical Plan PATIENT HAS BEEN LOST FOLLOW-UP SINCE 01/2022 He continues to have the same pain in the RUQ that radiates to his back, he also reports pain that goes around his waist and down t he back of his legs. He was seen in the ER in 12/2024 for diarrhea which has since resolved. He can not relate the pain to eating or BM, mostly it is worsened with bending, and physical activity. He continues to worry about his liver and about an injury that he received in childhood that involved landing on a sharp ice cycle in the right lower quadrant area. I reassure him that all of the imaging of his liver has been good in his liver enzymes are similarly in good shape. As far as the other injury I think we would have seen something on imaging or on his colonoscopies if he had some sort of lingering injury although I suppose if the injury was penetrating there could be some scar tissue. To date he has had the unremarkable upper endoscopy in 2018, a negative gastric emptying study in 2017, a negative HIDA scan in 2016, many negative CAT scans, and relatively unremarkable lab work. Because he has never had straight out diarrhea we except for this 1 time which likely was acute and resolved we have never done any food allergy testing or celiac panels similarly there has been no indication on colonoscopy or upper endoscopy to indicate this needs investigation. He does have occasional bloating after eating but this is hardly a concerning pathology. At this point I think will do a small-bowel follow-through study to see if there is any motility problems. However, overall I think that this is a musc uloskeletal presentation likely with pathology in the thoracic spine. Cat scans, which of course of the abdomen pelvis do not give a good evaluation of the thoracic spine, did show generalized osteoarthritis with osteophytes and Schmorl nodes particularly bad in the lumbar spine but also noted at T11-T12. He describes his pain as burning which is more consistent with a radicular pathology. To put this monitor RAST I will try to get a thoracic MRI of his spine. An x- ray of his thoracic spine did show generalized osteoarthritis but of course isn't sensitive to enough to see if there is any pinched nerve that could be causing abdominal pathology. He is also agreeable to the motility study. We did discuss an EGD but he declines that at this time. Of note he does not have nausea vomiting trouble swallowing heartburn weight loss or outright chronic constipation or diarrhea. He has complaints of trouble with his urine stream and what he describes as foaming of his urine but for this I direct him to Urology as this is out of my area of expertise. Return office visit in 3 months. Orders: Orders FL barium swallow w SBFT 02/08/25 R10.9 - Unspecified abdominal pain MR thoracic spine wo con 02/08/25 M47.14 - Other spondylosis with myelopathy, t horacic region Medications: Discontinued sucralfate Discontinued Reason: Patient Completed Course 1 g PO TID 90 tabs 0RF Coding Level of Care Code Est Pt Level 4 (71385) Diagnoses Abdominal pain R10.9 Thoracic spondylosis with myelopathy M47.14 Time Spent (min) 38
[2025-02-08 16:32] VITALS: BP 132/87; PULSE 74; O2SAT 100; BMI 28.5
== END 2025-02-08 17:14 | disposition home or self-care (01) ==
LOC: HO.HGI 16:29
PROVIDERS: PCP Nurse Practitioner Family; Visit Provider Nurse Practitioner
DX: R10.9 Unspecified abdominal pain (principal); M47.14 Other spondylosis with myelopathy, thoracic region
CPT/HCPCS: 99214

== ENCOUNTER → 2025-02-08 16:29 | Outpatient (BNVA) | payer OTHER, SELFPAY | PROVIDERS: PCP Nurse Practitioner Family; Visit Provider Nurse Practitioner | DX: M47.14 Other spondylosis with myelopathy, thoracic region (principal); R10.9 Unspecified abdominal pain | CPT/HCPCS: 99212 ==

== ENCOUNTER 2025-05-31 08:18 | Outpatient (REF) | payer OTHER, SELFPAY ==
--- NOTE | ~2025-05-31 | FL_ITS ---
EXAMINATION: XR BARIUM SWALLOW CLINICAL INFORMATION: Abdominal pain COMPARISON: None available. TECHNIQUE: Thick barium and barium coated saltine crackers was administered in upright view. Thin barium was administered in prone lying position. FINDINGS: Following oral administration of thick barium in upright view in different positions there is normal propagation of bolus from the oral cavity through the pharynx, esophagus into stomach without any evidence of intraluminal filling defect, narrowing or stricture. No extrinsic compression seen. On oral administration of barium coated saltine crackers there is normal propagation of bolus from the oral cavity through the pharynx, esophagus into stomach. On placing patient prone lying and oral administration of thin barium there is good distention of esophagus without obstruction, narrowing or stricture. On placing patient supine and in decubitus views there is mild gastroesophageal reflux seen without hiatal hernia. FLUOROSCOPY TIME: 1 minute 43 seconds DOSE AREA PRODUCT: 1305 uGy-m2 (microgray-meter squared) FL/FL barium swallow IMPRESSION: Mild gastroesophageal reflux without hiatal hernia. Electronically signed by: Rudi Porter MD 05/31/2025 11:30 AM EDT
--- NOTE | ~2025-05-31 | FL_ITS ---
EXAMINATION: FL SMALL BOWEL SERIES CLINICAL INFORMATION: ABDOMINAL PAIN COMPARISON: None available. TECHNIQUE: Following a ironmolder image of the abdomen, contrast was administered orally, and interval abdominal radiographs were performed to assess for contrast progression through the small bowel. Following contrast transit through the small bowel and into the colon, the patient was placed on the fluoroscopy table, and multiple spot images were obtained. FINDINGS: Machine Ii Engraver image of the abdomen demonstrates a normal bowel gas pattern. Minimal stool in the right colon. There are 2 ring shaped calcification in the right pelvis likely phleboliths. There is normal transit time of contrast material through the small bowel, with contrast present in the colon by less than 60 minutes. Small bowel loops are of normal caliber throughout the abdomen and pelvis. The jejunal and ileal fold patterns are normal, without evidence of abnormal thickening. No fixed regions of luminal narrowing are seen to suggest stricturing. The terminal ileum demonstrates a normal appearance. Appendix is partially visualized and appears normal caliber. FLUOROSCOPY TIME: 1 minute 43 seconds DOSE AREA PRODUCT: 1305 uGy-m2 (microgray-meter squared) FL/FL small bowel follow through IMPRESSION: Normal small bowel series. Electronically signed by: Rudi Porter MD 05/31/2025 12:36 PM EDT
== END 2025-05-31 08:19 | disposition home or self-care (01) ==
LOC: HO.XRAY 08:18
PROVIDERS: Visit Provider Nurse Practitioner
DX: R10.9 Unspecified abdominal pain (principal)
CPT/HCPCS: 74220; 74250

== ENCOUNTER → 2025-05-31 08:21 | Outpatient (BNV) | payer OTHER, SELFPAY | PROVIDERS: Visit Provider Radiology Diagnostic Radiology | DX: R10.9 Unspecified abdominal pain (principal); K44.9 Diaphragmatic hernia without obstruction or gangrene | CPT/HCPCS: 74221; 74250 ==